=== PATIENT | female | born 1945 | race Caucasian/White ===

== ENCOUNTER 2016-07-21 05:41 | Outpatient (CLI) | payer MEDICARE ==
--- NOTE | 2016-07-20 12:44 | HISTORY AND PHYSICAL ---
DATE OF SERVICE: 07/24/2016 HISTORY OF PRESENT ILLNESS: The patient is a 71-year-old white female referred for screening colonoscopy by Dr. Jean Baptiste. She is deemed to be of higher than average risk as there is a family history for colon cancer index case being her mother diagnosed in her 60s. She also had a grandmother who may have had colon cancer. She actually however lived to be 100. Her mother survived colon cancer but at the age of 75 of tobacco-related illness. The patient last underwent colonoscopy 5 years ago at which time she had a periappendiceal orifice tubular adenoma removed. She had moderate sigmoid diverticular disease and 1 moderate-sized transverse colonic diverticulum. Since that time she reports no blood in her stool and she has had no bowel habit change. She has had a major multilevel back stabilization surgery with andrea placement for severe scoliosis with symptomatic radiculopathy and lower extremity weakness. She had some mild postoperative nerve injury in her left foot but this has been improving as of late. She underwent surgery in 04/2014. She exercises on a regular basis with no anginal symptoms and she denies shortness of breath. PAST MEDICAL HISTORY: Also significant for hyperlipidemia with no known history of coronary artery disease. She underwent echocardiography in 2014 and she had some postoperative shortness of breath. She had a helical CT scan that revealed no evidence for pulmonary embolism. Her echo revealed normal systolic function with an estimated ejection fraction of 60% and normal pulmonary artery pressure estimated at 25 mmHg. PAST SURGICAL HISTORY: Also significant for total abdominal hysterectomy many years ago, rotator cuff repair and Caesarean section. SOCIAL HISTORY: She is retired. Previous [facility]. 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 She exercises on a regular basis. MEDICATIONS ON ADMISSION: L-thyroxine 25 mcg daily, baclofen 10 mg typically 1 tablet daily, estradiol 0.5 mg daily, lovastatin 40 mg daily, Co-Q10 200 mg daily, gabapentin 300 mg at bedtime, magnesium 400 mg daily, vitamin D 5000 units daily. PHYSICAL EXAMINATION: GENERAL APPEARANCE: Reveals a white female who appears younger than her stated age. VITAL SIGNS: Blood pressure was 134/60. Heart rate is 72 and regular. HEENT: Oral cavity reveals Mallampati Class 2. Oropharyngeal configuration: Posterior pharynx reveals no evidence for erythema. NECK: Reveals no JVD, adenopathy or bruits. CHEST: Clear. CARDIOVASCULAR: Reveals a regular rate and rhythm without murmur, S3 or S4. ABDOMEN: Soft and supple without mass, organomegaly or tenderness. BACK: Reveals a well-healed midline surgical scarring. EXTREMITIES: Reveal no cyanosis, clubbing or edema. ASSESSMENT: The patient was set up for screening colonoscopy on 07/24/2016. Instructions for the Suprep Kit were given and questions were answered. I thank you for the referral of this pleasant lady. Sincerely, Job ID: [id number] DocumentID: [id number] Dictated Date: 07/09/2016 20:52:42 Balancer Scale Date: 07/09/2016 22:05:09 Dictated By: DAYLIN TIM MD MTDD
[~2016-07-21] VITALS: Ht 160 cm; Wt 56.7 kg
[~2016-07-21 05:41] MED LIST: ACDPT PO; BACL10TA PO; ESTR0.5T PO; GABA-486 PO; LOVA40TA2 PO; OMEP20CA12 PO; OMEPRAZOLE PO; OXYC1TAB17 PO; OXYC5TAB71 PO; RANI75TA30 PO; UBID1CAP3 PO
[2016-07-21] MEDS ORDERED: GABA-488 PO (11:40)
[2016-07-21] MEDS ORDERED: LEVO25TA5 PO (11:41)
== END 2016-07-21 11:56 ==
LOC: PREOP 05:41
PROVIDERS: ATTEND Internal Medicine
DX: Z01.818 Encounter for other preprocedural examination (principal); Z12.11 Encounter for screening for malignant neoplasm of colon; Z80.0 Family history of malignant neoplasm of digestive organs

== ENCOUNTER 2016-07-24 06:59 | Day surgery (SDC) | payer MEDICARE ==
[~2016-07-24] VITALS: Ht 160 cm; Wt 56.7 kg
[~2016-07-24 06:59] MED LIST changes: +GABA-488 PO; +LEVO25TA5 PO
[2016-07-24] MEDS ORDERED: 1/2 NS IV SOLUTION 1,000 ML IV STA (07:10)
[2016-07-24] MEDS ORDERED: NALOXONE 0.4 MG/ML 1 ML (NARCAN) VIAL IVP PRN (07:15)
[2016-07-24] MEDS ORDERED: LIDOCAINE JELLY 2% (XYLOCAINE) 5 ML TUBE MM PRN (07:15)
[2016-07-24] MEDS ORDERED: FLUMAZENIL (ROMAZICON) 0.1 MG/ML 5 ML VIAL INJ PRN (07:15)
[2016-07-24] MEDS ORDERED: 1/2 NS IV SOLUTION 1,000 ML IV ONE (07:19)
--- NOTE | 2016-07-24 07:27 | Pre-Op Note & Conscious Sedat ---
Pre-Operative Progress Note H&P Reviewed The H&P was reviewed, patient examined and no changes noted. Date H&P Reviewed: July 24, 2016 Time H&P Reviewed: 07:26 Conscious Sedation Pre-Proced ASA Class: 2 Airway Mallampati Classification: ([place] appropriate class) I. II. III, IV Lungs Heart ASA score ASA 1: a normal healthy patient ASA 2: a patient with a mild systemic disease (mid diabetes, controlled hypertension, obesity ASA 3: a patient with a severe systemic disease that limits activity (angina , COPD, prior Myocardial infarction) ASA 4: a patient with an incapacitating disease that is a constant threat to life (CHF, renal failure) ASA 5: a moribund patient not expected to survive 24 hrs. (ruptured aneurysm) ASA 6: a declared brain patient whose organs are being harvested. For emergent operations, add the letter E after the classification Grade 2 Sedation Plan: Analgesia, Amnesia, Plan communicated to team members, Discussed options with patient/fam, Discussed risks with patient/fam Note The patient is an appropriate candidate to undergo the planned procedure, sedation, and anesthesia. The patient immediately re-assessed prior to indication. DAYLIN TIM MD July 24, 2016 07:27
[2016-07-24 07:43] VITALS: BP 109/68
[2016-07-24] MEDS ORDERED: fentaNYL INJECTION 100 MCG/2 ML AMP ONE ×2 (07:51→08:12)
[2016-07-24] MEDS ORDERED: LIDOCAINE JELLY 2% (XYLOCAINE) 5 ML TUBE ONE (07:51)
[2016-07-24] MEDS ORDERED: MIDAZOLAM 2 MG/2 ML (VERSED) VIAL ONE ×4 (07:51→08:21)
[2016-07-24] MEDS: fentaNYL INJECTION 100 MCG/2 ML AMP IVP PRN ×3 (07:55→08:16)
[2016-07-24] MEDS: MIDAZOLAM 2 MG/2 ML (VERSED) VIAL IVP PRN ×4 (08:00→08:25)
[2016-07-24 08:45] VITALS: BP 113/63
[2016-07-24 08:50] VITALS: BP 113/63
[2016-07-24 09:15] VITALS: BP 105/66
[2016-07-24 10:10] VITALS: BP 105/66
--- NOTE | 2016-07-25 03:33 | OPERATIVE REPORT ---
DATE OF SERVICE: COLONOSCOPY INDICATIONS: Colonoscopy is performed for screening purposes. The patient is deemed to be higher than average risk as her mother was diagnosed with colon cancer in her 60s and has an uncle with colon cancer as well. The patient was placed in the left lateral decubitus position. Prior to undergoing colonoscopy, digital rectal evaluation was performed. Anal sphincterotome was actually increased over baseline, no other abnormalities; no additional inspection of the anal canal or distal rectal vault. The colonoscope was then inserted into the rectum and under direct visualization advanced to the cecum. The cecum was identified by identification of the ileocecal valve, cecal strap and the appendiceal orifice. Photographic documentation was obtained. Careful inspection was made as the colonoscope was withdrawn. FINDINGS: There was no evidence for internal or external hemorrhoids. The rectum was unremarkable. A moderate number of small to medium size sigmoid diverticulum were present with mild haustral hypertrophy. There was no evidence to suggest diverticulitis. No other sigmoid colonic abnormalities were appreciated. Several small diverticula were noted in the descending colon, which is otherwise unremarkable. The transverse colon, ascending colon and cecum were normal. ASSESSMENT: 1. No evidence for neoplasia was noted on today's evaluation, would abdicate consideration for repeat screening colonoscopy in 5 years considering this patient's family history. 2. Moderate diverticular disease predominantly noted in the sigmoid and to a much lesser extent in the descending colon was present without evidence for diverticulitis. I thank you for the referral of this pleasant lady. Sincerely, Job ID: [id number] DocumentID: [id number] Dictated Date: 07/24/2016 11:54:10 Baggagemaster Date: 07/25/2016 03:32:46 Dictated By: DAYLIN TIM MD [facility] CENTERKaren
== END 2016-07-24 10:10 | disposition home or self-care (01) ==
LOC: ENDO 06:59
PROVIDERS: ATTEND Internal Medicine
DX: Z12.11 Encounter for screening for malignant neoplasm of colon (principal); Z80.0 Family history of malignant neoplasm of digestive organs; K57.30 Diverticulosis of large intestine without perforation or abscess without bleeding; E78.5 Hyperlipidemia, unspecified; I25.10 Atherosclerotic heart disease of native coronary artery without angina pectoris; Z79.899 Other long term (current) drug therapy

== ENCOUNTER → 2016-09-15 | Outpatient (CLI) | payer MEDICARE ==
--- NOTE | 2016-09-15 12:00 | Diagnostic Imaging Report ---
PROCEDURE: MRI lumbar spine. TECHNIQUE: Multiplanar, multisequence MRI of the lumbar spine was performed without contrast. INDICATION: M48.06 COMPARISON: 08/18/2013. FINDINGS: Since 2013, there has been posterior spine fusion with hardware from T10 to the sacrum with screws across the SI joints. This is resulting in significant beam hardening artifacts. There is also a disc spacer seen at the L4/5 level. There is significant improvement in the scoliosis, now mild convex to the left centered around the upper lumbar spine compared with severe scoliotic curvature on 08/18/2013 exam. Evaluation of the bone marrow is limited secondary to significant artifacts from the susceptibility artifact of the metallic hardware. Also evaluation of the spinal canal is somewhat limited although based on the visualized portions at the better seen levels, there is no significant spinal canal stenosis suggested at any level. There is no significant disc herniation. There is a suggestion of posterior ligamentous hypertrophy noted at some levels. IMPRESSION: There is significant improvement in the alignment of the lumbar spine with remaining mild scoliosis convex to the left centered in the upper lumbar spine. The study is limited with significant artifacts. No definite or significant disc herniation or spinal canal stenosis is seen. Dictated by: Dictated on workstation # [id number]
--- NOTE | 2016-09-15 16:38 | Diagnostic Imaging Report ---
PROCEDURE: MR imaging cervical spine without contrast. TECHNIQUE: Multiplanar, multisequence MR imaging of the cervical spine was performed without contrast. INDICATION: Neck pain. FINDINGS: There is straightening of the cervical spine lordotic curvature. There is minimal anterior translation of C3 over C4 and minimal posterior translation of C4 over C5. The vertebral body heights are preserved. There is significant disc height loss at C4/C5 and C5/C6 levels. Disc desiccation is seen at all levels. Prominent bone marrow edema is seen around C4/C5 and C5/C6 discs. The foramen magnum and upper cervical canal are widely patent. The spinal cord has normal signal. C2/C3: There is no disc herniation. No spinal canal or foraminal stenosis. C3/C4: There is a mild disc spur complex seen in the central and left paracentral region with no significant spinal canal stenosis. There is uncovertebral and facet joint hypertrophy with bilateral mild foraminal stenosis. C4/C5: There is a spur disc complex associated with mild spinal canal stenosis reducing the AP dimension of the canal to 9 mm. No cord compression. The foramina demonstrate severe stenosis on the right and mild stenosis on the left. C5/C6: There is a spur disc complex asymmetric to the left and posterior ligamentous hypertrophy. This is associated with moderate spinal canal stenosis reducing the AP dimension of the canal to 6.9 mm with minimal compression of the left side of the spinal cord. No cord signal abnormality, however, is seen. This is in part related to a prominent posteriorly projecting spur from the left uncovertebral joint level and adjacent disc spur complex. The neural foramina demonstrate severe stenosis on the left and moderate to severe stenosis on the right. C6/C7: There is a spur disc complex associated with mild to moderate spinal canal stenosis reducing the AP dimension of the canal to 8.2 mm with no cord compression. The neural foramina demonstrate moderate stenosis on the left and mild stenosis on the right side. Bilateral perineural cysts in the foramina are seen up to 9 mm on the right and 7 mm on the left. C7/T1: There is a minimal spur disc complex with no spinal canal stenosis. There is mild foraminal narrowing only on the right side. Incidental note of mucosal thickening in the sphenoidal sinuses is seen. IMPRESSION: Prominent degenerative disc changes in the mid to lower cervical spine. There is moderate spinal canal stenosis at C5/C6 level with minimal cord compression along the left side of the cord at this level. There is also multilevel significant foraminal stenosis as described. Dictated by: Dictated on workstation # [id number]
--- NOTE | 2016-09-15 16:51 | Diagnostic Imaging Report ---
EXAMINATION: Multiplanar, multisequence MRI of the thoracic spine performed without intravenous contrast. INDICATION: History of scoliosis with posterior fixation of the thoracolumbar spine. FINDINGS: There is significant susceptibility artifact related to posterior fusion hardware with transpedicular screws and connecting rods involving T4 level and extending caudally nearly involving each level of the thoracic spine and extending to the lumbar spine below the [id number] of this study. This distorts the signal in the bone marrow and could obscure marrow abnormalities although no definitive bone marrow lesion is identified. There is suggestion of disc desiccation seen at multiple levels. There is no definite disc herniation seen. Although there is distortion of the spinal canal and artifacts seen as well, there is no obvious evidence of spinal canal stenosis at any level. The spinal cord is also affected at multiple levels with artifacts as well with no obvious mass, syrinx or abnormal signal. IMPRESSION: Posterior fusion from T4 extending to the lumbar spine below the level of the [id number] of this exam resulting in artifacts as explained. No definite evidence of abnormal marrow lesion or spinal canal stenosis or cord compression at any level. Dictated by: Dictated on workstation # [id number]
== END ==
LOC: RAD 09:28
PROVIDERS: ATTEND Internal Medicine
DX: M50.321 Other cervical disc degeneration at C4-C5 level (principal); M48.02 Spinal stenosis, cervical region; Z98.1 Arthrodesis status
CPT/HCPCS: 72141; 72146; 72148

== ENCOUNTER → 2016-11-02 | Outpatient (CLI) | payer MEDICARE ==
--- NOTE | 2016-11-02 09:53 | Diagnostic Imaging Report ---
INDICATION: Left foot numbness, back pain. There are no previous CT thoracic and lumbar spine exams available for comparison. FINDINGS: The MRI thoracic and lumbar spine exams performed on 09/15/16 noted extensive postsurgical changes involving the thoracic and lumbar spine. Specifically, there is a fusion from T4 through S1. There are also orthopedic fixation screws extending obliquely through each sacroiliac joint. The previous MRI thoracic and lumbar spine exams fail to show any sign of a significant central stenosis. On this exam, the orthopedic hardware is again evident. There are bilateral pedicle screws in place at every level except T4, T5, T9 and T12. There are single pedicle screws on the left at these levels. The intervertebral cages at the L4-L5 level seen previously are also stable. As on the MRI examinations, the evaluation of the thecal sac is somewhat limited due to the artifact related to the orthopedic hardware. There does not appear to be any significant central high-grade stenosis. There is no fracture or acute bony abnormality identified. There is no sign of a paraspinal mass. There is diverticulosis of the sigmoid colon but there is no sign of acute diverticulitis. The lungs, where visualized are clear. IMPRESSION: 1. The extensive postsurgical changes involving the thoracic and lumbar spine seen previously are again evident. The orthopedic hardware seems to be in good position. 2. There is no fracture or acute bony abnormality identified. 3. There is no high-grade central stenosis. 4. There is no paraspinal mass visualized. 5. There is diverticulosis of sigmoid colon without evidence for acute diverticulitis. Dictated by: Dictated on workstation # [id number]
== END ==
LOC: RAD 07:34
PROVIDERS: ATTEND Orthopaedic Surgery Orthopaedic Surgery of the Spine
DX: M54.5 Low back pain (principal); Z98.1 Arthrodesis status
CPT/HCPCS: 72128; 72131

== ENCOUNTER 2016-12-30 08:16 | Outpatient (CLI) | payer MEDICARE ==
[~2016-12-30] VITALS: Ht 160 cm; Wt 56.7 kg
[2016-12-30] MEDS ORDERED: UBID1CAP3 PO (08:21)
[2016-12-30] MEDS ORDERED: BACL10TA PO (08:21)
[2016-12-30] MEDS ORDERED: LOVA40TA2 PO (08:21)
[2016-12-30] MEDS ORDERED: ESTR0.5T PO (08:21)
== END 2016-12-30 08:30 ==
LOC: PREOP 08:16
PROVIDERS: ATTEND Orthopaedic Surgery Orthopaedic Surgery of the Spine
DX: Z01.818 Encounter for other preprocedural examination (principal); M79.662 Pain in left lower leg

== ENCOUNTER 2017-01-01 06:14 | Day surgery (SDC) | payer MEDICARE ==
[~2017-01-01] VITALS: Ht 160 cm; Wt 56.7 kg
--- OUTSIDE RECORDS SUMMARY | 2017-01-01 06:19 | XMS REPORT | Continuity of Care Document ---
Author Author [facility] Organization [facility] Address Unknown Phone Unavailable Allergies Active Description Code Type Severity Reaction Onset Reported/Identified Relationship to Patient Clinical Status Yes No Known Drug Allergies [id number] Drug Allergy Unknown N/ A 10/16/2011 Medications Problems Date Dx Coded Attending Type Code Diagnosis Diagnosed By 10/16/2011 Ot 211.3 BENIGN NEOPLASM LG BOWEL 10/16/2011 Ot 562.10 DIVERTICULOSIS COLON (W/O MENT OF HEMORR 10/16/2011 Ot V16.0 FAMILY HX-GI MALIGNANCY 10/16/2011 Ot V76.51 SCREEN MAL NEOP-COLON 12/02/2012 JANELLE BIRMINGHAM DO Ot 724.4 LUMBOSACRAL NEURITIS NOS 12/02/2012 JANELLE BIRMINGHAM DO Ot 737.30 IDIOPATHIC SCOLIOSIS 12/02/2012 JANELLE BIRMINGHAM DO Ot V57.1 PHYSICAL THERAPY NEC 02/05/2014 Ot V76.12 02/05/2014 Ot V72.84 02/05/2014 Ot 715.34 02/05/2014 Ot 793.82 02/05/2014 Ot V76.12 02/05/2014 JANELLE BIRMINGHAM DO Ot 722.52 02/05/2014 JANELLE BIRMINGHAM DO Ot 737.30 02/05/2014 JANELLE BIRMINGHAM DO Ot 786.07 02/05/2014 JANELLE BIRMINGHAM DO Ot 786.2 02/05/2014 JANELLE BIRMINGHAM DO Ot 722.10 02/05/2014 JANELLE BIRMINGHAM DO Ot 722.52 02/05/2014 JANELLE BIRMINGHAM DO Ot 737.30 02/05/2014 JANELLE BIRMINGHAM DO Ot V76.12 02/07/2014 JANELLE BIRMINGHAM DO Ot 737.30 03/05/2014 JANELLE BIRMINGHAM DO Ot 737.30 03/12/2014 JANELLE BIRMINGHAM DO Ot 737.30 04/04/2014 Ot V76.12 04/04/2014 Ot V72.84 04/04/2014 Ot 715.34 04/04/2014 Ot 793.82 04/04/2014 Ot V76.12 04/04/2014 JANELLE BIRMINGHAM DO Ot 722.52 04/04/2014 JANELLE BIRMINGHAM DO Ot 737.30 04/04/2014 JANELLE BIRMINGHAM DO Ot 786.07 04/04/2014 JANELLE BIRMINGHAM DO Ot 786.2 04/04/2014 JANELLE BIRMINGHAM DO Ot 722.10 04/04/2014 JANELLE BIRMINGHAM DO Ot 722.52 04/04/2014 JANELLE BIRMINGHAM DO Ot 737.30 04/04/2014 JANELLE BIRMINGHAM DO Ot V76.12 04/04/2014 JANELLE BIRMINGHAM DO Ot 737.30 04/30/2014 DOM HINTON, CRISTAL Preston Ot 733.90 04/30/2014 DOM HINTON, CRISTAL Preston Ot 733.90 05/16/2014 DOM HINTON, CRISTAL Preston Ot 786.05 05/16/2014 CRISTAL FERNANDES MD Ot V72.81 05/17/2014 CRISTAL FERNANDES MD Ot 786.05 05/17/2014 CRISTAL FERNANDES MD Ot V72.81 05/26/2014 Ot 272.4 HYPERLIPIDEMIA NEC/NOS 05/26/2014 Ot 356.9 IDIO PERIPH NEURPTHY NOS 05/26/2014 Ot 553.3 DIAPHRAGMATIC HERNIA 05/26/2014 Ot 724.5 BACKACHE NOS 05/26/2014 Ot 785.2 CARDIAC MURMURS NEC 05/26/2014 Ot 786.09 RESPIRATORY ABNORM NEC 05/26/2014 Ot 786.50 CHEST PAIN NOS 06/11/2014 Ot V76.12 06/11/2014 Ot V72.84 06/11/2014 Ot 715.34 06/11/2014 Ot 793.82 06/11/2014 Ot V76.12 06/11/2014 JANELLE BIRMINGHAM DO Ot 722.52 06/11/2014 JANELLE BIRMINGHAM DO Ot 737.30 06/11/2014 JANELLE BIRMINGHAM DO Ot 786.07 06/11/2014 JANELLE BIRMINGHAM DO Ot 786.2 06/11/2014 JANELLE BIRMINGHAM DO Ot 722.10 06/11/2014 JANELLE BIRMINGHAM DO Ot 722.52 06/11/2014 JANELLE BIRMINGHAM DO Ot 737.30 06/11/2014 JANELLE BIRMINGHAM DO Ot V76.12 06/11/2014 JANELLE BIRMINGHAM DO Ot 737.30 06/11/2014 CRISTAL FERNANDES MD Ot 733.90 06/11/2014 CRISTAL FERNANDES MD Ot 786.05 06/11/2014 CRISTAL FERNANDES MD Ot V72.81 06/11/2014 CRISTAL FERNANDES MD Ot 733.90 07/13/2014 NOEL HURD MD Ot 722.52 LUMB/LUMBOSAC DISC DEGEN 07/13/2014 NOEL HURD MD Ot 737.30 IDIOPATHIC SCOLIOSIS 07/13/2014 NOEL HURD MD, Ot V58.69 [facility] MED,LT,CURRENT USE 07/19/2014 NOEL HURD MD Ot 722.52 07/19/2014 NOEL HURD MD, Ot 737.30 07/19/2014 NOEL HURD MD Ot V58.69 08/10/2014 NOEL HURD MD Ot 722.52 08/10/2014 NOEL HURD MD Ot 737.30 08/10/2014 NOEL HURD MD, Ot V58.69 08/10/2014 AMELIA HINTON, VINCE Z Ot 729.81 09/05/2014 AMELIA HINTON, VINCE Z Ot 729.81 10/26/2014 JANELLE BIRMINGHAM DO Ot 457.1 10/26/2014 JANELLE BIRMINGHAM DO Ot V57.21 11/23/2014 JANELLE BIRMINGHAM DO Ot 457.1 OTHER LYMPHEDEMA 11/23/2014 JANELLE BIRMINGHAM DO Ot V57.21 ENCOUNTER FOR OCCUPATIONAL THERAPY 12/11/2014 JANELLE BIRMINGHAM DO Ot V76.12 12/26/2015 Ot V76.12 OT SCREEN MAMMO-MALIGN NEOPLASM OF [place] 12/26/2015 Ot V72.84 EXAM PRE-OPERATIVE NOS 12/26/2015 Ot 715.34 LOC OSTEOARTH NOS-HAND 12/26/2015 Ot 793.82 INCONCLUSIVE MAMMOGRAM 12/26/2015 Ot V76.12 OTH SCREEN MAMMO-MALIGN NEOPLASM OF [place] 12/26/2015 JANELLE BIRMINGHAM DO Ot 722.52 LUMB/LUMBOSAC DISC DEGEN 12/26/2015 JANELLE BIRMINGHAM DO Ot 737.30 IDIOPATHIC SCOLIOSIS 12/26/2015 JANELLE BIRMINGHAM DO Ot 786.07 WHEEZING 12/26/2015 JANELLE BIRMINGHAM DO Ot 786.2 COUGH 12/26/2015 JANELLE BIRMINGHAM DO Ot 722.10 LUMBAR DISC DISPLACEMENT 12/26/2015 JANELLE BIRMINGHAM DO Ot 722.52 LUMB/LUMBOSAC DISC DEGEN 12/26/2015 JANELLE BIRMINGHAM DO Ot 737.30 IDIOPATHIC SCOLIOSIS 12/26/2015 JANELLE BIRMINGHAM DO Ot V76.12 OTH SCREEN MAMMO-MALIGN NEOPLASM OF [place] 12/26/2015 JANELLE BIRMINGHAM DO Ot 737.30 IDIOPATHIC SCOLIOSIS 12/26/2015 DOM HINTON, CRISTAL Preston Ot 733.90 BONE CARTILAGE DIS NOS 12/26/2015 CRISTAL FERNANDES MD Ot 786.05 SHORTNESS OF BREATH 12/26/2015 CRISTAL FERNANDES MD Ot V72.81 OLYN-LRT-RJESYDVIE CARDIOVASCULAR 12/26/2015 CRISTAL FERNANDES MD Ot 733.90 BONE CARTILAGE DIS NOS 12/26/2015 NOEL HURD MD Ot 722.52 LUMB/LUMBOSAC DISC DEGEN 12/26/2015 NOEL HURD MD Ot 737.30 IDIOPATHIC SCOLIOSIS 12/26/2015 NOEL HURD MD Ot V58.69 OT MED,LT,CURRENT USE 12/26/2015 AMELIA HINTON, VINCE Z Ot 729.81 SWELLING OF LIMB 12/26/2015 JANELLE BIRMINGHAM DO Ot V76.12 OTH SCREEN MAMMO-MALIGN NEOPLASM OF [place] 02/04/2016 JANELLE BIRMINGHAM DO Ot Z12.31 ENCNTR SCREEN MAMMOGRAM FOR MALIGNANT NE 02/05/2016 JANELLE BIRMINGHAM DO Ot Z12.31 ENCNTR SCREEN MAMMOGRAM FOR MALIGNANT NE 02/05/2016 JANELLE BIRMINGHAM DO Ot Z12.31 ENCNTR SCREEN MAMMOGRAM FOR MALIGNANT NE 02/10/2016 JANELLE BIRMINGHAM DO Ot Z12.31 ENCNTR SCREEN MAMMOGRAM FOR MALIGNANT NE 02/25/2016 JANELLE BIRMINGHAM DO Ot Z12.31 ENCNTR SCREEN MAMMOGRAM FOR MALIGNANT NE 07/22/2016 DAYLIN TIM MD Ot Z01.818 ENCOUNTER FOR OTHER PREPROCEDURAL EXAMIN 07/22/2016 DAYLIN TIM MD Ot Z12.11 ENCOUNTER FOR SCREENING FOR MALIGNANT NE 07/22/2016 DAYLIN TIM MD Ot Z80.0 FAMILY HISTORY OF MALIGNANT NEOPLASM OF 07/24/2016 DAYLIN TIM MD Ot E78.5 HYPERLIPIDEMIA, UNSPECIFIED 07/24/2016 DAYLIN TIM MD Ot I25.10 ATHSCL HEART DISEASE OF [place] CORONARY 07/24/2016 DAYLIN TIM MD Ot K57.30 DVRTCLOS OF LG INT W/O PERFORATION OR AB 07/24/2016 DAYLIN TIM MD Ot Z12.11 ENCOUNTER FOR SCREENING FOR MALIGNANT NE 07/24/2016 DAYLIN TIM MD Ot Z79.899 OTHER [facility] (CURRENT) DRUG THERAPY 07/24/2016 DAYLIN TIM MD Ot Z80.0 FAMILY HISTORY OF MALIGNANT NEOPLASM OF 07/27/2016 DAYLIN TIM MD Ot Z01.818 ENCOUNTER FOR OTHER PREPROCEDURAL EXAMIN 07/27/2016 DAYLIN TIM MD Ot Z12.11 ENCOUNTER FOR SCREENING FOR MALIGNANT NE 07/27/2016 DAYLIN TIM MD Ot Z80.0 FAMILY HISTORY OF MALIGNANT NEOPLASM OF 07/29/2016 DAYLIN TIM MD Ot E78.5 HYPERLIPIDEMIA, UNSPECIFIED 07/29/2016 DAYLIN TIM MD Ot I25.10 ATHSCL HEART DISEASE OF [place] CORONARY 07/29/2016 DAYLIN TIM MD Ot K57.30 DVRTCLOS OF LG INT W/O PERFORATION OR AB 07/29/2016 DAYLIN TIM MD Ot Z12.11 ENCOUNTER FOR SCREENING FOR MALIGNANT NE 07/29/2016 DAYLIN TIM MD Ot Z79.899 OTHER VICE [employer] [employer] (CURRENT) DRUG THERAPY 07/29/2016 DAYLIN TIM MD Ot Z80.0 FAMILY HISTORY OF MALIGNANT NEOPLASM OF 09/16/2016 JANELLE BIRMINGHAM DO Ot M48.02 SPINAL STENOSIS, CERVICAL REGION 09/16/2016 JANELLE BIRMINGHAM DO Ot 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 09/16/2016 JANELLE BIRMINGHAM DO Ot Z98.1 ARTHRODESIS STATUS 09/16/2016 JANELLE BIRMINGHAM DO Ot M48.02 SPINAL STENOSIS, CERVICAL REGION 09/16/2016 JANELLE BIRMINGHAM DO Ot 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 09/16/2016 JANELLE BIRMINGHAM DO Ot Z98.1 ARTHRODESIS STATUS 09/16/2016 JANELLE BIRMINGHAM DO Ot M48.02 SPINAL STENOSIS, CERVICAL REGION 09/16/2016 JANELLE BIRMINGHAM DO Ot 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 09/16/2016 BIRMINGHAMJANELLE KC DO Ot Z98.1 ARTHRODESIS STATUS 09/16/2016 JANELLE BIRMINGHAM DO Ot M48.02 SPINAL STENOSIS, CERVICAL REGION 09/16/2016 BIRMINGHAMJANELLE KC DO Ot 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 09/16/2016 JANELLE BIRMINGHAM DO Ot Z98.1 ARTHRODESIS STATUS 09/16/2016 JANELLE BIRMNIGHAM DO Ot M48.02 SPINAL STENOSIS, CERVICAL REGION 09/16/2016 JANELLE BIRMINGHAM DO Ot 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 09/16/2016 JANELLE BIRMINGHAM DO Ot Z98.1 ARTHRODESIS STATUS 09/16/2016 JANELLE BIRMINGHAM DO Ot M48.02 SPINAL STENOSIS, CERVICAL REGION 09/16/2016 JANELLE BIRMINGHAM DO Ot 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 09/16/2016 JANELLE BIRMINGHAM DO Ot Z98.1 ARTHRODESIS STATUS 09/16/2016 JANELLE BIRMINGHAM DO Ot M48.02 SPINAL STENOSIS, CERVICAL REGION 09/16/2016 JANELLE BIRMINGHAM DO Ot 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 09/16/2016 JANELLE BIRMINGHAM DO Ot Z98.1 ARTHRODESIS STATUS 09/21/2016 JANELLE BIRMINGHAM DO Ot M48.02 SPINAL STENOSIS, CERVICAL REGION 09/21/2016 JANELLE BIRMINGHAM DO Ot 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 09/21/2016 JANELLE BIRMINGHAM DO Ot Z98.1 ARTHRODESIS STATUS 10/08/2016 JANELLE BIRMINGHAM DO Ot M48.02 SPINAL STENOSIS, CERVICAL REGION 10/08/2016 JANELLE BIRMINGHAM DO Ot 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 Visit Date/Time Discharge Status Pt. Type Provider Facility Loc./Unit Complaint [id number] 11/02/2016 07:34:00 2016 23:59:59 CLS Outpatient ISHMAEL GUAN MD [facility] RAD BACK PAIN M54.5 [id number] 09/29/2016 14:24:00 2016 23:59:59 CLS Preadmit ISHMAEL GUAN MD [facility] RAD BACK PAIN [id number] 09/15/2016 16:15:00 2016 23:59:59 CLS Preadmit JANELLE BIRMINGHAM DO [facility] RAD M48.06 [id number] 09/15/2016 09:28:00 2016 23:59:59 CLS Outpatient JANELLE BIRMINGHAM DO [facility] RAD M48.06 [id number] 07/24/2016 06:59:00 2016 10:10:00 DIS Outpatient DAYLIN TIM MD [facility] ENDO SCREENING, FAMILY HISTORY OF COLON CANCER [id number] 07/21/2016 05:41:00 2016 11:56:00 DIS Outpatient DAYLIN TIM MD [facility] PREOP SCREENINNG, FAMILY HISTORY OF COLON CANCER [id number] 02/04/2016 09:19:00 2015 23:59:59 CLS Outpatient JANELLE BIRMINGHAM DO [facility] RAD SCREENING [id number] 12/26/2015 11:01:00 2015 23:59:59 CLS Outpatient JANELLE BIRMINGHAM DO [facility] RAD SCREENING [id number] 10/31/2014 16:01:00 2014 14:23:00 DIS Outpatient JANELLE BIRMINGHAM DO [facility] REHAB LYMPHEDEMA MASSAGE [id number] 11/20/2014 10:59:00 2014 23:59:59 CLS Outpatient JANELLE BIRMINGHAM DO [facility] RAD SCREENING [id number] 07/13/2014 07:35:00 2014 08:28:00 DIS Outpatient NOEL HURD MD [facility] CARD DDD [id number] 07/11/2014 15:20:00 2014 23:59:59 CLS Outpatient AMELIA HINTON, VINCE Roach [facility] RAD LEFT LOWER EXTREMITY SWELLING SCREENING FOR DVT [id number] 06/11/2014 14:11:00 2014 23:59:59 CLS Outpatient NOEL HURD MD [facility] CARD DDD LUMBAR [id number] 04/10/2014 13:43:00 2014 23:59:59 CLS Outpatient CRISTAL FERNANDES MD [facility] RAD OSTEOPENIA [id number] 04/05/2014 09:25:00 2014 23:59:59 CLS Outpatient CRISTAL FERNANDES MD [facility] RAD OSTEOPENIA [id number] 04/04/2014 07:53:00 2014 23:59:59 CLS Outpatient CRISTAL FERNANDES MD [facility] CARD PREOP OP CLEARANCE [id number] 02/05/2014 13:21:00 2013 23:59:59 CLS Outpatient JANELLE BIRMINGHAM DO [facility] RAD SCOLIOSIS [id number] 08/18/2013 08:29:00 2013 23:59:59 CLS Outpatient JANELLE BIRMINGHAM DO [facility] RAD ROTO SCOLEOSIS W/ RADICULOPATHY [id number] 08/10/2013 09:46:00 2013 23:59:59 CLS Outpatient JANELLE BIRMINGHAM DO [facility] RAD ROUTINE [id number] 02/23/2013 11:50:00 2012 23:59:59 CLS Outpatient JANELLE BIRMINGHAM DO [facility] RAD COUGH,WHEEZING [id number] 12/02/2012 11:01:00 2012 14:53:00 DIS Outpatient JANELLE BIRMINGHAM DO [facility] REHAB SCOLIOSIS WITH L RADICULOPATHY [id number] 09/05/2012 13:32:00 2012 23:59:59 CLS Outpatient JANELLE BIRMINGHAM DO [facility] RAD LUMBAGO [id number] 01/01/2017 07:30:00 PEN Preadmit ISHMAEL GUAN MD [facility] SDC PAINFUL HARDWARE [id number] 05/25/2014 14:40:00 Document Registration [id number] 04/22/2012 13:15:00 Document Registration [id number] 02/01/2012 13:55:00 Document Registration [id number] 10/16/2011 07:04:00 Document Registration [id number] 10/15/2011 08:08:00 Document Registration [id number] 03/02/2011 08:46:00 Document Registration
--- OUTSIDE RECORDS SUMMARY | 2017-01-01 06:19 | XMS REPORT | Clinical Summary ---
Author Author [facility] Organization [facility] Address Unknown Phone Unavailable Care Team Providers Care Drafter Name Role Phone PCP Unavailable Source Comments Some departments are not documenting in the electronic medical record. If you do not see the information that you expected, contact Release of Information in the Health Information Management department at [phone] for further assistance in locating additional records.[facility] Allergies Not on File Current Medications Not on file Active Problems Not on file Social History Tobacco Use Types Packs/Day Years Used Date Never Assessed Sex Assigned at Date Recorded Not on file Last Filed Vital Signs Not on file Plan of Treatment Health Maintenance Due Date Last Done Comments HEPATITIS C SCREENING 1945 PHYSICAL (COMPREHENSIVE) 1953 EXAM PERTUSSIS VACCINE 1957 TETANUS VACCINE 1963 BREAST CANCER SCREENING 1986 COLORECTAL CANCER 1996 SCREENING SHINGLES VACCINE 2006 OSTEOPOROSIS SCREENING 2011 PREVNAR/PNEUMOVAX (#1) 2011 INFLUENZA VACCINE 12/20/2016 Results Not on filefrom Last 3 Months
[2017-01-01] MEDS ORDERED: DEXMEDETOMIDINE 200 MCG/2 ML (PRECEDEX) VIAL IV ONE (06:29)
[2017-01-01 06:35] VITALS: BP 126/73
[2017-01-01] MEDS ORDERED: LIDOCAINE PF 2% 5 ML (XYLOCAINE) VIAL ONE (06:35)
[2017-01-01] MEDS ORDERED: proPOfol 200 MG/20 ML (DIPRIVAN) VIAL IV ONE (06:35)
[2017-01-01] MEDS ORDERED: LIDOCAINE JELLY 2% (XYLOCAINE) 5 ML TUBE ONE (06:35)
[2017-01-01] MEDS ORDERED: MIDAZOLAM 2 MG/2 ML (VERSED) VIAL ONE (06:36)
[2017-01-01] MEDS ORDERED: fentaNYL INJECTION 100 MCG/2 ML AMP ONE (06:36)
[2017-01-01] MEDS ORDERED: NS (IVPB) 100 ML ONE (06:39)
[2017-01-01] MEDS ORDERED: SUCCINYLCHOLINE INJ 100 MG/5 ML SYR ONE (06:40)
[2017-01-01] MEDS ORDERED: LACTATED RINGERS 1,000 ML IV PRN (06:40)
[2017-01-01] MEDS ORDERED: ONDANSETRON 4 MG/2 ML (SDV) Z0FRAN ONE (06:40)
[2017-01-01] MEDS ORDERED: ROCURONIUM 50 MG/5 ML (ZEMURON) VIAL IV ONE (06:47)
[2017-01-01] MEDS ORDERED: ceFAZolin 2 GM/50 ML NS 50 ML ONE (06:50)
[2017-01-01] MEDS ORDERED: GENTAMICIN 40 MG/ML 2 ML INJ SDV ONE (06:54)
[2017-01-01] MEDS ORDERED: BUP/EPI 0.5% 1:200,000 (MARCAINE) 10ML VIAL IJ ONE (06:54)
[2017-01-01] MEDS ORDERED: HYDR-757 PO (07:44)
[2017-01-01] MEDS ORDERED: ceFAZolin 2 GM/NS 50 ML IV ONE (07:45)
--- NOTE | 2017-01-01 08:16 | Progress Note-Post Operative ---
Post-Operative Progess Note Surgeon (s)/Dowel Pin Worker (s) Surgeon ISHMAEL GUAN MD Dowel Pin Worker: JEROME Ashby Pre-Operative Diagnosis HARDWARE PAIN Post-Operative Diagnosis Same Procedure & Operative Findings Date of Procedure 01/01/17 Procedure Performed/Findings Removal Left L4 screw Anesthesia Type GETA Estimated Blood Loss Estimated blood loss (mL): min Specimens/Packing Specimens Removed screw ISHMAEL GUAN MD Jan 01, 2017 8:16 am
[2017-01-01] MEDS ORDERED: NEOSTIGMINE (BLOXIVERZ ) 1 MG/1ML 10 ML VIAL ONE (08:23)
[2017-01-01] MEDS ORDERED: GLYCOPYRROLATE 0.2 MG/ML (ROBINUL) 2 ML VIAL ONE (08:23)
[2017-01-01] MEDS ORDERED: morphine INJ 10 MG/ML 1ML (SYR OR VIAL) IVP PRN (09:30)
[2017-01-01] MEDS ORDERED: ONDANSETRON 4 MG/2 ML (SDV) Z0FRAN IVP PRN (09:30)
[2017-01-01 10:10] VITALS: BP 78/45
[2017-01-01 10:40] VITALS: BP 84/47
[2017-01-01] MEDS ORDERED: HYDROcodone/APAP 5 MG/325 MG (LORTAB) TAB ONE (11:05)
[2017-01-01 11:10] VITALS: BP 89/54
[2017-01-01] MEDS ORDERED: HYDROcodone/APAP 5 MG/325 MG (LORTAB) TAB PO PRN (11:30)
[2017-01-01 11:50] VITALS: BP 89/54
--- NOTE | 2017-01-01 14:09 | Diagnostic Imaging Report ---
EXAM: Intraoperative views of the lumbar spine. INDICATION: Removal of left L4 transpedicular screws performed by Dr. Pascal. FINDINGS / IMPRESSION: The provided images demonstrate the removal of left L4 transpedicular screw. Dictated by: Dictated on workstation # [id number]
--- NOTE | 2017-01-03 12:26 | OPERATIVE REPORT ---
DATE OF SERVICE: 01/01/2017 PREOPERATIVE DIAGNOSIS: Painful hardware. POSTOPERATIVE DIAGNOSIS: Painful hardware. PROCEDURE PERFORMED: Removal of posterior nonsegmental hardware lumbar spine. DATE AND TIME OF SURGERY: Please see anesthesia record. SURGEON: Ishmael Pascal MD OPERATIONS ADMINISTRATIVE ASSISTANT: JAM Ashby ROLE OF TECHNOLOGY PROFESSIONAL: Aid in retraction of the procedure, aid in hardware removal and wound closure. ANESTHESIA: General endotracheal. ESTIMATED BLOOD LOSS: Minimal. INTRAVENOUS FLUIDS: Please see anesthesia record. ANTIBIOTICS: Ancef. COMPLICATIONS: None. INDICATIONS FOR PROCEDURE: The patient is a 71-year-old female with previous scoliotic fusion in [place]. She has a screw that is lateral and painful, desires removal. Risks, benefits, alternatives discussed. She would like to proceed with the operation. DESCRIPTION OF PROCEDURE: The patient was taken to the preoperative holding area and brought back to the operative suite after adequate induction of general anesthesia, preoperative antibiotics placement of spinal monitoring, ____ prone on Castillo table, careful padding to all extremities, sterilely prepped and draped ____. Attention was directed directly overlying the L4 screw which was localized with imaging and a small Donal incision was made. Dissection carried down to the level of the hardware. The L4 screw was visualized, titanium cutting bur was used cut the andrea above and below the andrea. The screw was removed without difficulty. Bone wax and FloSeal were used to aid in hemostasis. Once hemostasis was obtained, the wound was closed in layers. The patient was transferred to recovery room in stable condition having tolerated the procedure well. Job ID: [id number] DocumentID: [id number] Dictated Date: 01/01/2017 08:26:40 Manager Product Management Date: 01/01/2017 09:13:18 Dictated By: ISHMAEL PASCAL MD
== END 2017-01-01 12:09 | disposition home or self-care (01) ==
LOC: SDC 06:14
PROVIDERS: ATTEND Orthopaedic Surgery Orthopaedic Surgery of the Spine
DX: T84.84XA Pain due to internal orthopedic prosthetic devices, implants and grafts, initial encounter (principal); M41.9 Scoliosis, unspecified; M19.91 Primary osteoarthritis, unspecified site; G62.9 Polyneuropathy, unspecified; Z79.899 Other long term (current) drug therapy
CPT/HCPCS: 87081

== ENCOUNTER → 2017-08-09 | Outpatient (CLI) | payer MEDICARE ==
[~2017-08-09] MED LIST changes: +HYDR-757 PO
--- NOTE | 2017-08-09 14:46 | Diagnostic Imaging Report ---
Indication: Pain in the lateral left breast. Sonographic interrogation of the lateral left breast was performed. In addition, all 4 quadrants and retroareolar regions were evaluated. No sonographic abnormality is seen. No solid or cystic mass is detected. Impression: BI-RADS category 1. No sonographic abnormalities identified. Continued clinical and self breast exam is recommended to confirm stability. ACR BI-RADS Category 1: Negative. Result letter will be mailed to the patient. Note: At least 10% of breast cancer is not imaged by mammography. Dictated by: Dictated on workstation # [id number]
--- NOTE | 2017-08-09 16:03 | Diagnostic Imaging Report ---
INDICATION: Pain in the lateral left breast. COMPARISON: 02/04/2016. TECHNIQUE: 2D and 3D unilateral left diagnostic mammography was performed. The current study was also evaluated with a Computer Aided Detection (CAD) system. FINDINGS: The left breast is heterogeneously dense, limiting the sensitivity of mammography. No discrete mass is identified. No suspicious calcifications are identified. The left axilla is unremarkable. IMPRESSION: No mammographic features suspicious for malignancy are identified. Even so, directed sonographic interrogation of the area of pain in the lateral left breast is recommended. ACR BI-RADS Category 0: Incomplete. (Needs additional imaging evaluation). Result letter will be mailed to the patient. Note: At least 10% of breast cancer is not imaged by mammography. Dictated by: Dictated on workstation # [id number]
== END ==
LOC: RAD 13:26
PROVIDERS: ATTEND Nurse Practitioner
DX: N64.4 Mastodynia (principal)
CPT/HCPCS: 76642

== ENCOUNTER → 2017-08-24 | Outpatient (CLI) | payer MEDICARE ==
--- NOTE | 2017-08-24 12:37 | Diagnostic Imaging Report ---
Indication: Right upper quadrant pain; Gallbladder sonography performed in the routine fashion. The liver shows normal echogenicity with no focal lesions. The gallbladder shows no stones or wall thickening. There is however dilatation of the common bile duct which measures 10 mm in diameter. No obvious causes visualized on these views. Pancreas not well-seen due to overlying gas. The right kidney was normal and measured 10 cm in length. There is no ascites. Portal vein is patent. Impression: Gallbladder itself appears unremarkable. There is, however, dilatation of the common duct which measures about 10 mm in diameter. Pancreas is not well seen. There is no obvious cause for the common duct dilatation on this study. I would consider further evaluation with MRCP as clinically warranted. Dictated by: Dictated on workstation # [id number]
== END ==
LOC: RAD 11:24
PROVIDERS: ATTEND Internal Medicine
DX: K82.8 Other specified diseases of gallbladder (principal)
CPT/HCPCS: 76705

== ENCOUNTER → 2017-08-25 | Outpatient (CLI) | payer MEDICARE ==
[~2017-08-25] MED LIST changes: +CATHETER FLUSH 10 ML SYR IV PRN
--- NOTE | 2017-08-25 17:39 | Diagnostic Imaging Report ---
EXAMINATION: Hepatobiliary Scan with ejection fraction. INDICATION: Abdominal pain. This study was performed following administration of 5.04 mCi of Choletec and 8 ounces of Ensure. There are no previous hepatobiliary scans available for comparison. FINDINGS: The abdominal ultrasound exam of 08/24/2017 failed to show any sign of cholelithiasis or acute cholecystitis. However, the common bile duct did appear to be dilated. On this study, there is uptake of the radiotracer by the gallbladder before 30 minutes. This would weigh against the diagnosis of acute cholecystitis. There is also extension of the radiotracer into the small bowel indicating that the common bile duct is not obstructed. The ejection fraction is 98% (normal greater than 35%). IMPRESSION: 1. There is no evidence for acute cholecystitis. The common bile duct does not appear to be obstructed either. If further evaluation of the common bile duct is desired, then MRCP would be recommended. 2. The ejection fraction is 98% and well within normal limits. Dictated by: Dictated on workstation # [id number]
== END ==
LOC: CARD 13:40
PROVIDERS: ATTEND Internal Medicine
DX: R10.11 Right upper quadrant pain (principal)
CPT/HCPCS: 78227

== ENCOUNTER → 2017-08-31 | Outpatient (CLI) | payer MEDICARE ==
[~2017-08-31] MED LIST changes: -CATHETER FLUSH 10 ML SYR IV PRN
--- NOTE | 2017-08-31 10:30 | Diagnostic Imaging Report ---
PROCEDURE: MR imaging cholangiography-pancreatography. TECHNIQUE: Multiplanar imaging of the abdomen was performed on a 1.5 Marline magnet without contrast. 3D reconstructions were made for the MRCP INDICATION: Epigastric pain. COMPARISON: Nuclear medicine hepatobiliary scan from 08/25/2017 and gallbladder ultrasound of 08/24/2017. FINDINGS: The gallbladder is normally distended without filling defects to indicate cholelithiasis. No gallbladder wall thickening or pericholecystic fluid. No intrahepatic biliary duct dilatation is present. Common bile duct is mildly dilated measuring 8 mm. There appears to be an area of abrupt stricturing in the distal common bile duct at the level of the pancreatic head, and this appears secondary to a fluid-filled duodenal diverticulum arising from the second portion of the duodenum. This diverticulum measures approximately 1.0 x 1.1 cm. No filling defects within the common bile duct to indicate choledocholithiasis. The pancreatic duct is not dilated. No pancreatic divisum. No hepatic steatosis. Assessment of the abdominal viscera is limited without IV contrast. No T2 hyperintense masses within the liver or kidneys. No hydronephrosis. No upper abdominal lymphadenopathy. There is signal void artifact within the vertebral bodies secondary to posterior instrumented fusion. Normal caliber abdominal aorta. IMPRESSION: 1. No cholelithiasis or choledocholithiasis. 2. Mildly dilated common bile duct does not have associated intrahepatic biliary duct dilatation. Focal luminal narrowing on the distal common bile duct appears to be due to external compression from a small diverticulum arising from the second portion of the duodenum. Nuclear medicine HIDA scan demonstrates the common bile duct to remain patent and this luminal narrowing is therefore not flow limiting in the common bile duct. Dictated by: Dictated on workstation # [id number]
== END ==
LOC: RAD 09:23
PROVIDERS: ATTEND Internal Medicine
DX: K83.8 Other specified diseases of biliary tract (principal)
CPT/HCPCS: 74181

== ENCOUNTER → 2017-10-11 | Outpatient (CLI) | payer MEDICARE ==
--- NOTE | 2017-10-11 09:17 | Diagnostic Imaging Report ---
PROCEDURE: CT chest without contrast. TECHNIQUE: Multiple contiguous axial images were obtained through the chest without the use of intravenous contrast. INDICATION: Enlarging thoracic aorta. Comparison is made with prior examination 11/02/2016. FINDINGS: The ascending aorta measures up to 3.6 cm AP. Aortic arch and descending aorta are normal in caliber. Heart size is normal. There are coronary artery calcifications. There is no pathologically enlarged adenopathy in the chest. There are no discrete pulmonary nodules, masses or infiltrates. There is minimal scarring in the lung bases. There is no pleural or pericardial fluid. There is no pneumothorax. There are postsurgical changes of thoracolumbar fusion. The visualized intra-abdominal structures are unremarkable. IMPRESSION: The ascending aorta measures up to 3.6 cm. Moderate coronary artery calcifications. Minimal scarring in lung bases. Dictated by: Dictated on workstation # [id number]
== END ==
LOC: RAD 08:37
PROVIDERS: ATTEND Internal Medicine
DX: I77.810 Thoracic aortic ectasia (principal); I25.10 Atherosclerotic heart disease of native coronary artery without angina pectoris
CPT/HCPCS: 71250

== ENCOUNTER → 2018-06-30 | Outpatient (CLI) | payer MEDICARE ==
[~2018-06-30] MED LIST changes: +HYDR-4226 PO; -HYDR-757 PO
--- NOTE | 2018-06-30 13:46 | Diagnostic Imaging Report ---
INDICATION: Abdominal pain. FINDINGS: Proximal aorta measures 1.8 x 2.3 cm. Mid inferior abdominal aorta measures 1.4 x 1.4 cm. Distal aorta measures 1.1 x 1.7 cm. Neither iliac was well visualized due to bowel gas. IMPRESSION: No evidence of abdominal aortic aneurysm. Dictated by: Dictated on workstation # [id number]
== END ==
LOC: RAD 07:50
PROVIDERS: ATTEND Internal Medicine
DX: I77.819 Aortic ectasia, unspecified site (principal)
CPT/HCPCS: 76775

== ENCOUNTER 2018-07-11 05:53 | Outpatient (CLI) | payer MEDICARE ==
[~2018-07-11] VITALS: Ht 160 cm; Wt 56.7 kg
[2018-07-13] MEDS ORDERED: PANT40TA2 PO (12:16)
== END 2018-07-11 11:00 | disposition home or self-care (01) ==
LOC: PREOP 05:53
PROVIDERS: ATTEND Surgery
DX: Z01.818 Encounter for other preprocedural examination (principal)

== ENCOUNTER 2018-07-13 09:54 | Day surgery (SDC) | payer MEDICARE ==
[~2018-07-13] VITALS: Ht 160 cm; Wt 56.7 kg
[2018-07-13] MEDS ORDERED: NS IV 500 ML 500 ML IV PRN (10:04)
[2018-07-13] MEDS ORDERED: NS IV 500 ML 500 ML ONE (10:05)
[2018-07-13] MEDS ORDERED: MIDAZOLAM 2 MG/2 ML (VERSED) VIAL IVP ONE (10:15)
[2018-07-13] MEDS ORDERED: HURRICAINE EXT TUBE (BENZOCAINE) XX PRN (10:15)
[2018-07-13] MEDS ORDERED: LIDOCAINE JELLY 2% 6 ML SYRINGE MM PRN (10:15)
[2018-07-13] MEDS ORDERED: fentaNYL INJECTION 100 MCG/2 ML AMP IVP ONE (10:15)
[2018-07-13 10:20] VITALS: BP 133/58
--- OUTSIDE RECORDS SUMMARY | 2018-07-13 10:22 | XMS REPORT ---
Author Author AMADO JENNINGS Organization [facility] Address [address] [place] [address] Care Team Providers Care Clinic Office Coordinator Name Role Phone AMADO JENNINGS Unavailable PROBLEMS Unknown Problems ALLERGIES No Information ENCOUNTERS Encounter Location Date Diagnosis [facility] [address] [facility] [id number], [place] [address] Dec, Encounter for immunization Z23 [facility] IN [facility] [address] [facility] [id number], [place] [address] Mar, Encounter for immunization Z23 [facility] [address] [facility] [id number], [place] [address] Aug, Encounter for immunization Z23 IMMUNIZATIONS Vaccine Route Administration Date Status FLULAVAL QUAD 0.5ML (6 MO & UP) 2017 IM Intramuscular Dec 21, 2017 Administered SOCIAL HISTORY Never Assessed REASON FOR VISIT Flu shot PLAN OF CARE VITAL SIGNS MEDICATIONS Unknown Medications RESULTS No Results PROCEDURES Procedure Date Ordered Result Body Site FLULAVAL QUAD 0.5ML (6 MO AND UP) 2017Dec 21, 2017 FLULAVAL QUAD 0.5ML (6 MO & UP) 2017Dec 21, 2017 SINGLE IMMUNIZATION ADMIN Dec 21, 2017 INSTRUCTIONS MEDICATIONS ADMINISTERED No Known Medications
--- OUTSIDE RECORDS SUMMARY | 2018-07-13 10:22 | XMS REPORT ---
Author Author AMADO JENNINGS Organization [facility] Address [address] [place] [address] Care Team Providers Care Rotary Engine Assembler Name Role Phone AMADO JENNINGS Unavailable PROBLEMS Unknown Problems ALLERGIES No Information ENCOUNTERS Encounter Location Date Diagnosis [facility] [address] [facility] [facility] [id number], [place] [address] Mar, Encounter for immunization Z23 [facility] [address] [facility] [facility] [id number], [place] [address] Aug, Encounter for immunization Z23 IMMUNIZATIONS Vaccine Route Administration Date Status FLUZONE HIGH DOSE (65 AND UP) 2017 IM Intramuscular Apr 03, 2017 Administered SOCIAL HISTORY Never Assessed REASON FOR VISIT Flu shot [id number] PLAN OF CARE VITAL SIGNS MEDICATIONS Unknown Medications RESULTS No Results PROCEDURES Procedure Date Ordered Result Body Site FLUZONE HIGH DOSE 65 AND UP 2015Apr 03, 2017 SINGLE IMMUNIZATION ADMIN Apr 03, 2017 INSTRUCTIONS MEDICATIONS ADMINISTERED No Known Medications
--- OUTSIDE RECORDS SUMMARY | 2018-07-13 10:24 | XMS REPORT | Continuity of Care Document ---
Author Organization Unknown Address Unknown Allergies Active Description Code Type Severity Reaction Onset Reported/Identified Relationship to Patient Clinical Status Yes No Known Drug Allergies [id number] Drug Allergy Unknown N/A 12/30/2016 Yes Sulfa (Sulfonamide Antibiotics) [id number] Drug Allergy Unknown N/A 2018 Medications There is no data. Problems Date Dx Coded Attending Type Code [...] 03/05/2014 JANELLE BIRMINGHAM DO Ot 737.30 03/12/2014 VALENCIA LEBLANC JANELLE Kristie Ot 737.30 04/04/2014 Ot V76.12 04/04/2014 Ot V72.84 04/04/2014 Ot 715.34 04/04/2014 Ot 793.82 04/04/2014 Ot V76.12 04/04/2014 BIRMINGHAMRHODA LEBLANC JANELLE Kristie Ot 722.52 04/04/2014 BIRMINGHAMJANELLE DUONG DO Ot 737.30 04/04/2014 VALENCIA LEBLANC JANELLE Kristie Ot 786.07 04/04/2014 BIRMINGHAMRHODA LEBLANC JANELLE Kristie Ot 786.2 04/04/2014 BIRMINGHAMRHODA LEBLANC JANELLE Kristie Ot 722.10 04/04/2014 BIRMINGHAMJANELLE DUONG DO Ot 722.52 04/04/2014 JANELLE BIRMINGHAM DO Ot 737.30 04/04/2014 VALENCIA LEBLANC JANELLE Kristie Ot V76.12 04/04/2014 JANELLE BIRMINGHAM DO Ot 737.30 04/30/2014 DOM HINTON, CRISTAL Preston Ot 733.90 04/30/2014 DOM HINTON, CRISTAL Preston Ot 733.90 05/16/2014 DOM HINTON, CRISTAL Preston Ot 786.05 05/16/2014 DOM HINTON, CRISTAL Preston Ot V72.81 05/17/2014 DOM HINTON, CRISTAL Preston Ot 786.05 05/17/2014 CRISTAL FERNANDES MD Ot [...] Ot 737.30 IDIOPATHIC SCOLIOSIS 07/13/2014 NOEL HURD MD Ot V58.69 OT MED,LT,CURRENT USE 07/19/2014 NOEL HURD MD Ot 722.52 07/19/2014 NOEL HURD MD, Ot 737.30 07/19/2014 NOEL HURD MD Ot V58.69 08/10/2014 NOEL HURD MD Ot 722.52 08/10/2014 NOEL HURD MD Ot 737.30 08/10/2014 NOEL HURD MD Ot V58.69 08/10/2014 AMELIA HINTON, VINCE Z Ot 729.81 09/05/2014 AEMLIA HINTON, VINCE Z Ot 729.81 10/26/2014 JANELLE BIRMINGHAM DO Ot 457.1 10/26/2014 JANELLE BIRMINGHAM DO Ot V57.21 11/23/2014 JANELLE BIRMINGHAM DO Ot 457.1 OTHER LYMPHEDEMA 11/23/2014 JANELLE BIRMINGHAM DO Ot V57.21 ENCOUNTER FOR OCCUPATIONAL THERAPY 12/11/2014 JANELLE BIRMINGHAM DO Ot V76.12 12/26/2015 Ot V76.12 OT SCREEN MAMMO-MALIGN NEOPLASM OF GRAD[place] 12/26/2015 Ot V72.84 EXAM PRE- OPERATIVE NOS 12/26/2015 Ot 715.34 LOC OSTEOARTH NOS-HAND [...] BREATH 12/26/2015 CRISTAL FERNANDES MD Ot V72.81 [id number] CARDIOVASCULAR 12/26/2015 CRISTAL FERNANDES MD Ot 733.90 BONE CARTILAGE DIS NOS 12/26/2015 NOEL HURD MD Ot 722.52 LUMB/LUMBOSAC DISC DEGEN 12/26/2015 NOEL HURD MD Ot 737.30 IDIOPATHIC SCOLIOSIS 12/26/2015 NOEL HURD MD Ot V58.69 OT MED,LT,CURRENT USE 12/26/2015 AMELIA HINTON, VINCE Roach Ot 729.81 SWELLING OF LIMB 12/26/2015 JANELLE [...] Z12.31 ENCNTR SCREEN MAMMOGRAM FOR MALIGNANT NE 07/21/2016 DAYLIN TIM MD Ot Z01.818 ENCOUNTER FOR OTHER PREPROCEDURAL EXAMIN 07/21/2016 DAYLIN TIM MD Ot Z12.11 ENCOUNTER FOR SCREENING FOR MALIGNANT NE 07/21/2016 DAYLIN TIM MD Ot Z80.0 FAMILY HISTORY OF MALIGNANT NEOPLASM OF 07/22/2016 DAYLIN TIM MD Ot Z01.818 ENCOUNTER FOR OTHER PREPROCEDURAL EXAMIN 07/22/2016 DAYLIN TIM MD Ot Z12.11 ENCOUNTER FOR SCREENING FOR MALIGNANT NE 07/22/2016 DAYLIN TIM MD Ot Z80.0 FAMILY HISTORY OF MALIGNANT NEOPLASM OF 07/24/2016 DAYLIN TIM MD Ot E78.5 HYPERLIPIDEMIA, UNSPECIFIED 07/24/2016 DAYLIN TIM MD Ot I25.10 ATHSCL HEART DISEASE OF [place] CORONARY 07/24/2016 DAYLIN TIM MD Ot K57.30 DVRTCLOS OF LG INT W/O PERFORATION OR AB 07/24/2016 DAYLIN TIM MD Ot Z12.11 ENCOUNTER FOR SCREENING FOR MALIGNANT NE 07/24/2016 DAYLIN TIM MD Ot Z79.899 OTHER GROUP HOME (CURRENT) DRUG THERAPY 07/24/2016 DAYLIN TIM MD Ot Z80.0 FAMILY HISTORY OF MALIGNANT NEOPLASM OF 07/27/2016 DAYLIN TIM MD Ot Z01.818 ENCOUNTER FOR OTHER PREPROCEDURAL EXAMIN 07/27/2016 DAYLIN TIM MD Ot Z12.11 ENCOUNTER FOR SCREENING FOR MALIGNANT NE 07/27/2016 DAYLIN TIM MD Ot Z80.0 FAMILY HISTORY OF MALIGNANT NEOPLASM OF 07/29/2016 DAYLIN TIM MD, Ot E78.5 HYPERLIPIDEMIA, UNSPECIFIED 07/29/2016 DAYLIN TIM MD Ot I25.10 ATHSCL HEART DISEASE OF [place] CORONARY 07/29/2016 DAYLIN TIM MD Ot K57.30 DVRTCLOS OF LG INT W/O PERFORATION OR AB 07/29/2016 DAYLIN TIM MD Ot Z12.11 ENCOUNTER FOR SCREENING FOR MALIGNANT NE 07/29/2016 DAYLIN TIM MD Ot Z79.899 OTHER GROUP HOME (CURRENT) DRUG THERAPY 07/29/2016 MEETA HINTON, DAYLIN Jones Ot Z80.0 FAMILY HISTORY OF MALIGNANT NEOPLASM OF 09/16/2016 JANELLE BIRMINGHAM DO Ot M48.02 SPINAL STENOSIS, CERVICAL REGION 09/16/2016 BIRMINGHAMJANELLE KC DO Ot 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 09/16/2016 BIRMINGHAMJANELLE DUONG DO Ot Z98.1 ARTHRODESIS STATUS 09/16/2016 BIRMINGHAMJANELLE KC DO Ot M48.02 SPINAL STENOSIS, CERVICAL REGION 09/16/2016 [place] JANELLE LEBLANC Ot 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 09/16/2016 BIRMINGHAMJANELLE KC DO Ot Z98.1 ARTHRODESIS STATUS 09/16/2016 BIRMINGHAMJANELLE KC DO Ot M48.02 SPINAL STENOSIS, CERVICAL REGION 09/16/2016 BIRMINGHAMJANELLE KC DO Ot 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 09/16/2016 BIRMINGHAMJANELLE KC DO Ot Z98.1 ARTHRODESIS STATUS 09/16/2016 BIRMINGHAMJANELLE KC DO Ot M48.02 SPINAL STENOSIS, CERVICAL REGION 09/16/2016 BIRMINGHAMJANELLE KC DO Ot 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 09/16/2016 BIRMINGHAMJANELLE KC DO Ot Z98.1 ARTHRODESIS STATUS 09/16/2016 BIRMINGHAMJANELLE KC DO Ot M48.02 SPINAL STENOSIS, CERVICAL REGION 09/16/2016 BIRMINGHAMJANELLE KC DO Ot 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 09/16/2016 BIRMINGHAMJANELLE KC DO Ot Z98.1 ARTHRODESIS STATUS 09/16/2016 BIRMINGHAMJANELLE KC DO Ot M48.02 SPINAL STENOSIS, CERVICAL REGION 09/16/2016 BIRMINGHAMJANELLE KC DO Ot 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 09/16/2016 BIRMINGHAM DOJANELLE Ot Z98.1 ARTHRODESIS STATUS 09/16/2016 BIRMINGHAMJANELLE KC DO Ot M48.02 SPINAL STENOSIS, CERVICAL REGION 09/16/2016 BIRMINGHAMJANELLE KC DO Ot 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 09/16/2016 BIRMINGHAMJANELLE KC DO Ot Z98.1 ARTHRODESIS STATUS 09/21/2016 JANELLE [...] ISHMAEL GUAN MD Ot Z98.1 ARTHRODESIS STATUS 12/30/2016 ISHMAEL GUAN MD Ot M79.662 PAIN IN LEFT LOWER LEG 12/30/2016 ISHMAEL GUAN MD Ot Z01.818 ENCOUNTER FOR OTHER PREPROCEDURAL EXAMIN 12/30/2016 Ot V72.84 EXAM PRE- OPERATIVE NOS 12/30/2016 Ot 715.34 LOC OSTEOARTH NOS-HAND 12/30/2016 Ot 793.82 INCONCLUSIVE MAMMOGRAM 12/30/2016 Ot V76.12 OT SCREEN MAMMO-MALIGN NEOPLASM OF GRADY 12/30/2016 JANELLE BIRMINGHAM DO Ot 722.52 LUMB/LUMBOSAC DISC DEGEN 12/30/2016 JANELLE BIRMINGHAM DO Ot 737.30 IDIOPATHIC SCOLIOSIS 12/30/2016 JANELLE BIRMINGHAM DO Ot 786.07 WHEEZING 12/30/2016 JANELLE BIRMINGHAM DO Ot 786.2 COUGH 12/30/2016 JANELLE BIRMINGHAM DO Ot 722.10 LUMBAR DISC DISPLACEMENT 12/30/2016 JANELLE BIRMINGHAM DO Ot 722.52 LUMB/LUMBOSAC DISC DEGEN 12/30/2016 JANELLE BIRMINGHAM DO Ot 737.30 IDIOPATHIC SCOLIOSIS 12/30/2016 JANELLE BIRMINGHAM DO Ot V76.12 OTH SCREEN MAMMO-MALIGN NEOPLASM OF GRADY 12/30/2016 JANELLE BIRMINGHAM DO Ot 737.30 IDIOPATHIC SCOLIOSIS 12/30/2016 CRISTAL FERNANDES MD Ot 733.90 BONE CARTILAGE DIS NOS 12/30/2016 CRISTAL FERNANDES MD Ot 786.05 SHORTNESS OF BREATH 12/30/2016 CRISTAL FERNANDES MD Ot V72.81 [id number] CARDIOVASCULAR 12/30/2016 CRISTAL FERNANDES MD Ot 733.90 BONE CARTILAGE DIS NOS 12/30/2016 NOEL HURD MD Ot 722.52 LUMB/LUMBOSAC DISC DEGEN 12/30/2016 NOEL HURD MD Ot 737.30 IDIOPATHIC SCOLIOSIS 12/30/2016 NOEL HURD MD Ot V58.69 OT MED,LT,CURRENT USE 12/30/2016 AMELIA HINTON, VINCE Z Ot 729.81 SWELLING OF LIMB 12/30/2016 JANELLE BIRMINGHAM DO Ot V76.12 OTH SCREEN MAMMO-MALIGN NEOPLASM OF GRAD[place] 12/30/2016 JANELLE BIRMINGHAM DO Ot Z12.31 ENCNTR SCREEN MAMMOGRAM FOR MALIGNANT NE 12/30/2016 JANELLE BIRMINGHAM DO Ot Z12.31 ENCNTR SCREEN MAMMOGRAM FOR MALIGNANT NE 12/30/2016 JANELLE BIRMINGHAM DO Ot M48.02 SPINAL STENOSIS, CERVICAL REGION 12/30/2016 JANELLE BIRMINGHAM DO Ot 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 12/30/2016 JANELLE BIRMINGHAM DO Ot Z98.1 ARTHRODESIS STATUS 12/30/2016 ISHMAEL GUAN MD Ot M54.5 LOW BACK PAIN 12/30/2016 ISHMAEL GUAN MD Ot Z98.1 ARTHRODESIS STATUS 01/01/2017 ISHMAEL GUAN MD Ot G62.9 POLYNEUROPATHY, UNSPECIFIED 01/01/2017 ISHMAEL GUAN MD Ot M19.91 PRIMARY OSTEOARTHRITIS, UNSPECIFIED SITE 01/01/2017 ISHMAEL GUAN MD Ot M41.9 SCOLIOSIS, UNSPECIFIED 01/01/2017 ISHMAEL GUAN MD Ot T84.84XA PAIN DUE TO INTERNAL ORTHOPEDIC PROSTH D 01/01/2017 ISHMAEL GUAN MD Ot Z79.899 OTHER GROUP HOME (CURRENT) DRUG THERAPY 01/04/2017 ISHMAEL GUAN MD, Ot G62.9 POLYNEUROPATHY, UNSPECIFIED 01/04/2017 ISHMAEL GUAN MD Ot M19.91 PRIMARY OSTEOARTHRITIS, UNSPECIFIED SITE 01/04/2017 ISHMAEL GUAN MD, Ot M41.9 SCOLIOSIS, UNSPECIFIED 01/04/2017 ISHMAEL GUAN MD, Ot T84.84XA PAIN DUE TO INTERNAL ORTHOPEDIC PROSTH D 01/04/2017 ISHMAEL GUAN MD, Ot Z79.899 OTHER [employer] (CURRENT) DRUG THERAPY 01/07/2017 ISHMAEL GUAN MD, Ot G62.9 POLYNEUROPATHY, UNSPECIFIED 01/07/2017 ISHMAEL GUAN MD, Ot M19.91 PRIMARY OSTEOARTHRITIS, UNSPECIFIED SITE 01/07/2017 ISHMALE GUAN MD, Ot M41.9 SCOLIOSIS, UNSPECIFIED 01/07/2017 ISHMAEL GUAN MD, Ot T84.84XA PAIN DUE TO INTERNAL ORTHOPEDIC PROSTH D 01/07/2017 ISHMAEL GUAN MD, Ot Z79.899 OTHER SHEEP [employer] WHE[employer] F[employer]ER (CURRENT) DRUG THERAPY 07/19/2017 Ot 715.34 LOC OSTEOARTH NOS-HAND 07/19/2017 Ot 793.82 INCONCLUSIVE MAMMOGRAM 07/19/2017 Ot V76.12 OT SCREEN MAMMO-MALIGN NEOPLASM OF GRAD[place] 07/19/2017 JANELLE BIRMINGHAM DO Ot 722.52 LUMB/LUMBOSAC DISC DEGEN 07/19/2017 JANELLE BIRMINGHAM DO Ot 737.30 IDIOPATHIC SCOLIOSIS 07/19/2017 JANELLE BIRMINGHAM DO Ot 786.07 WHEEZING 07/19/2017 JANELLE BIRMINGHAM DO, Ot 786.2 COUGH 07/19/2017 JANELLE BIRMINGHAM DO Ot 722.10 LUMBAR DISC DISPLACEMENT 07/19/2017 JANELLE BIRMINGHAM DO, Ot 722.52 LUMB/LUMBOSAC DISC DEGEN 07/19/2017 JANELLE BIRMINGHAM DO Ot 737.30 IDIOPATHIC SCOLIOSIS 07/19/2017 JANELLE BIRMINGHAM DO, Ot V76.12 OTH SCREEN MAMMO-MALIGN NEOPLASM OF GRAD[place] 07/19/2017 JANELLE BIRMINGHAM DO Ot 737.30 IDIOPATHIC SCOLIOSIS 07/19/2017 DOM HINTON, CRISTAL Preston Ot 733.90 BONE CARTILAGE DIS NOS 07/19/2017 DOM HINTON, CRISTAL Preston Ot 786.05 SHORTNESS OF BREATH 07/19/2017 DOM HINTON, CRISTAL Preston Ot V72.81 [id number] CARDIOVASCULAR 07/19/2017 CRISTAL FERNANDES MD Ot 733.90 BONE CARTILAGE DIS NOS 07/19/2017 VANNESSA HINTON, NOEL Flowers Ot 722.52 LUMB/LUMBOSAC DISC DEGEN 07/19/2017 NOEL HURD MD Ot 737.30 IDIOPATHIC SCOLIOSIS 07/19/2017 NOEL HURD MD Ot V58.69 OT MED,LT,CURRENT USE 07/19/2017 AMELIA HINTON, VINCE Z Ot 729.81 SWELLING OF LIMB 07/19/2017 JANELLE BIRMINGHAM DO Ot V76.12 OTH SCREEN MAMMO-MALIGN NEOPLASM OF GRADY 07/19/2017 JANELLE BIRMINGHAM DO Ot Z12.31 ENCNTR SCREEN MAMMOGRAM FOR MALIGNANT NE 07/19/2017 JANELLE BIRMINGHAM DO, Ot Z12.31 ENCNTR SCREEN MAMMOGRAM FOR MALIGNANT NE 07/19/2017 JANELLE BIRMINGHAM DO Ot M48.02 SPINAL STENOSIS, CERVICAL REGION 07/19/2017 JANELLE BIRMINGHAM DO Ot 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 07/19/2017 JANELLE BIRMINGHAM DO Ot Z98.1 ARTHRODESIS STATUS 07/19/2017 ISHMAEL GUAN MD Ot M54.5 LOW BACK PAIN 07/19/2017 ISHMAEL GUAN MD Ot Z98.1 ARTHRODESIS STATUS 08/10/2017 CATALINA GARCIA Ot N64.4 MASTODYNIA 08/25/2017 JANELLE BIRMINGHAM DO Ot K82.8 OTHER SPECIFIED DISEASES OF [place] 08/27/2017 JANELLE BIRMINGHAM DO Ot R10.11 RIGHT UPPER QUADRANT PAIN 08/30/2017 JANELLE BIRMINGHAM DO Ot K82.8 OTHER SPECIFIED DISEASES OF [place] 08/31/2017 CATALINA GARCIA Ot N64.4 MASTODYNIA 09/01/2017 JANELLE BIRMINGHAM DO Ot K83.8 OTHER SPECIFIED DISEASES OF BILIARY TRAC 09/08/2017 CATALINA GARCIA COMIC ILLUSTRATOR Ot N64.4 MASTODYNIA 09/15/2017 JANELLE BIRMINGHAM DO Ot K82.8 OTHER SPECIFIED DISEASES OF [place] 09/15/2017 JANELLE BIRMINGHAM DO Ot R10.11 RIGHT UPPER QUADRANT PAIN 09/21/2017 JANELLE BIRMINGHAM DO Ot K82.8 OTHER SPECIFIED DISEASES OF [place] 09/21/2017 JANELLE BIRMINGHAM DO Ot R10.11 RIGHT UPPER QUADRANT PAIN 09/23/2017 JANELLE BIRMINGHAM DO Ot K83.8 OTHER SPECIFIED DISEASES OF BILIARY TRAC 09/30/2017 JANELLE BIRMINGHAM DO Ot K83.8 OTHER SPECIFIED DISEASES OF BILIARY TRAC 10/11/2017 Ot 793.82 INCONCLUSIVE MAMMOGRAM 10/11/2017 Ot V76.12 OT SCREEN MAMMO-MALIGN NEOPLASM OF GRADY 10/11/2017 JANELLE BIRMINGHAM DO Ot 722.52 LUMB/LUMBOSAC DISC DEGEN 10/11/2017 JANELLE BIRMINGHAM DO Ot 737.30 IDIOPATHIC SCOLIOSIS 10/11/2017 JANELLE BIRMINGHAM DO Ot 786.07 WHEEZING 10/11/2017 JANELLE BIRMINGHAM DO Ot 786.2 COUGH 10/11/2017 JANELLE BIRMINGHAM DO Ot 722.10 LUMBAR DISC DISPLACEMENT 10/11/2017 JANELLE BIRMINGHAM DO Ot 722.52 LUMB/LUMBOSAC DISC DEGEN 10/11/2017 JANELLE BIRMINGHAM DO Ot 737.30 IDIOPATHIC SCOLIOSIS 10/11/2017 JANELLE BIRMINGHAM DO, Ot V76.12 OTH SCREEN MAMMO-MALIGN NEOPLASM OF GRADY 10/11/2017 JANELLE BIRMINGHAM DO Ot 737.30 IDIOPATHIC SCOLIOSIS 10/11/2017 CRISTAL FERNANDES MD Ot 733.90 BONE CARTILAGE DIS NOS 10/11/2017 CRISTAL FERNANDES MD Ot 786.05 SHORTNESS OF BREATH 10/11/2017 CRISTAL FERNANDES MD Ot V72.81 [id number] CARDIOVASCULAR 10/11/2017 CRISTAL FERNANDES MD Ot 733.90 BONE CARTILAGE DIS NOS 10/11/2017 NOEL HURD MD, Ot 722.52 LUMB/LUMBOSAC DISC DEGEN 10/11/2017 NOEL HURD MD, Ot 737.30 IDIOPATHIC SCOLIOSIS 10/11/2017 VANNESSA HINTON, NOEL Flowers Ot V58.69 OT MED,LT,CURRENT USE 10/11/2017 AMELIA HINTON, VINCE Roach Ot 729.81 SWELLING OF LIMB 10/11/2017 JANELLE BIRMINGHAM DO, Ot V76.12 OT SCREEN MAMMO-MALIGN NEOPLASM OF GRADY 10/11/2017 JANELLE BIRMINGHAM DO, Ot Z12.31 ENCNTR SCREEN MAMMOGRAM FOR MALIGNANT NE 10/11/2017 JANELLE BIRMINGHAM DO, Ot Z12.31 ENCNTR SCREEN MAMMOGRAM FOR MALIGNANT NE 10/11/2017 JANELLE BIRMINGHAM DO Ot M48.02 SPINAL STENOSIS, CERVICAL REGION 10/11/2017 JANELLE BIRMINGHAM DO Ot 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 10/11/2017 JANELLE BIRMINGHAM DO, Ot Z98.1 ARTHRODESIS STATUS 10/11/2017 ISHMAEL GUAN MD Ot M54.5 LOW BACK PAIN 10/11/2017 ISHMAEL GUAN MD, Ot Z98.1 ARTHRODESIS STATUS 10/11/2017 CATALINA GARCIA Ot N64.4 MASTODYNIA 10/11/2017 JANELLE BIRMINGHAM DO Ot K82.8 OTHER SPECIFIED DISEASES OF [place] 10/11/2017 JANELLE BIRMINGHAM DO Ot R10.11 RIGHT UPPER QUADRANT PAIN 10/11/2017 JANELLE BIRMINGHAM DO Ot K83.8 OTHER SPECIFIED DISEASES OF BILIARY TRAC 10/11/2017 JANELLE BIRMINGHAM DO Ot I25.10 ATHSCL HEART DISEASE OF [place] CORONARY 10/11/2017 JANELLE BIRMINGHAM DO, Ot I77.810 THORACIC AORTIC ECTASIA 10/11/2017 JANELLE BIRMINGHAM DO, Ot I25.10 ATHSCL HEART DISEASE OF [place] CORONARY 10/11/2017 JANELLE BIRMINGHAM DO, Ot 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 Results Test Result Range Methicillin resistant Staphylococcus aureus (MRSA) screening culture - 06:30 Methicillin resistant Staphylococcus aureus (MRSA) screening culture [id number] NRG Encounters ACCT No. Visit Date/Time Discharge Status Pt. Type Provider Facility Loc./Unit Complaint [id number] 07/11/2018 05:53:00 07/11/2018 11:00:00 DIS Outpatient LAST FISHER MD [facility] PREOP EGD [id number] 06/30/2018 07:50:00 06/30/2018 23:59:59 CLS Outpatient JANELLE BIRMINGHAM DO [facility] RAD AORTIC ECTASIA, AORTIC CALCIFICATION [id number] 04/20/2018 10:45:00 04/20/2018 23:59:59 CLS Preadmit JANELLE BIRMINGHAM DO [facility] RAD MENOPAUSE [id number] 10/11/2017 08:37:00 10/11/2017 23:59:59 CLS Outpatient JANELLE BIRMINGHAM DO [facility] RAD THORACIC ECTASIA [id number] 08/31/2017 09:30:00 08/31/2017 23:59:59 CLS Outpatient JANELLE BIRMINGHAM DO [facility] RAD EPIGASTRIC PAIN [id number] 08/25/2017 13:40:00 08/25/2017 23:59:59 CLS Outpatient JANELLE BIRMINGHAM DO [facility] CARD RIGHT UPPER QUAD PAIN [id number] 08/24/2017 11:24:00 08/24/2017 23:59:59 CLS Outpatient JANELLE BIRMINGHAM DO [facility] RAD RUQ PAIN [id number] 08/09/2017 13:26:00 08/09/2017 23:59:59 CLS Outpatient CATALINA GARCIA [facility] RAD N64.4 PAIN OF LEFT BREAST [id number] 01/01/2017 06:14:00 01/01/2017 12:09:00 DIS Outpatient ISHMAEL GUAN MD [facility] SDC PAINFUL HARDWARE [id number] 12/30/2016 08:16:00 12/30/2016 08:30:00 DIS Outpatient ISHMAEL GUAN MD [facility] PREOP PAINFUL HARDWARE [id number] 11/02/2016 07:34:00 11/02/2016 23:59:59 CLS Outpatient ISHMAEL GUAN MD [facility] RAD BACK PAIN M54.5 [id number] 09/29/2016 14:24:00 09/29/2016 23:59:59 CLS Preadmit ISHMAEL GUAN MD [facility] RAD BACK PAIN [id number] 09/15/2016 16:15:00 09/15/2016 23:59:59 CLS Preadmit JANELLE BIRMINGHAM DO [facility] RAD M48.06 [id number] 09/15/2016 09:28:00 09/15/2016 23:59:59 CLS Outpatient JANELLE BIRMINGHAM DO [facility] RAD M48.06 [id number] 07/24/2016 06:59:00 07/24/2016 10:10:00 DIS Outpatient DAYLIN TIM MD [facility] ENDO SCREENING, FAMILY HISTORY OF COLON CANCER [id number] 07/21/2016 05:41:00 07/21/2016 11:56:00 DIS Outpatient DAYLIN TIM MD [facility] PREOP SCREENINNG, FAMILY HISTORY OF COLON CANCER [id number] 02/04/2016 09:19:00 02/04/2016 23:59:59 CLS Outpatient JANELLE BIRMINGHAM DO [facility] RAD SCREENING [id number] 12/26/2015 11:01:00 12/26/2015 23:59:59 CLS Outpatient JANELLE BIRMINGHAM DO [facility] RAD SCREENING [id number] 10/31/2014 16:01:00 11/23/2014 14:23:00 DIS Outpatient JANELLE BIRMINGHAM DO [facility] REHAB LYMPHEDEMA MASSAGE [id number] 11/20/2014 10:59:00 11/20/2014 23:59:59 CLS Outpatient JANELLE BIRMINGHAM DO [facility] RAD SCREENING [id number] 07/13/2014 07:35:00 07/13/2014 08:28:00 DIS Outpatient NOEL HURD MD [facility] CARD DDD [id number] 07/11/2014 15:20:00 07/11/2014 23:59:59 CLS Outpatient VINCE CISNEROS MD [facility] RAD LEFT LOWER EXTREMITY SWELLING SCREENING FOR DVT [id number] 06/11/2014 14:11:00 06/11/2014 23:59:59 CLS Outpatient NOEL HURD MD [facility] CARD DDD LUMBAR [id number] 04/10/2014 13:43:00 04/10/2014 23:59:59 CLS Outpatient CRISTAL FERNANDES MD [facility] RAD OSTEOPENIA [id number] 04/05/2014 09:25:00 04/05/2014 23:59:59 CLS Outpatient CRISTAL FERNANDES MD [facility] RAD OSTEOPENIA [id number] 04/04/2014 07:53:00 04/04/2014 23:59:59 CLS Outpatient CRISTAL FERNANDES MD [facility] CARD PREOP OP CLEARANCE [id number] 02/05/2014 13:21:00 02/05/2014 23:59:59 CLS Outpatient JANELLE BIRMINGHAM DO [facility] RAD SCOLIOSIS [id number] 08/18/2013 08:29:00 08/18/2013 23:59:59 CLS Outpatient JANELLE BIRMINGHAM DO [facility] RAD ROTO SCOLEOSIS W/ RADICULOPATHY [id number] 08/10/2013 09:46:00 08/10/2013 23:59:59 CLS Outpatient JANELLE BIRMINGHAM DO [facility] RAD ROUTINE [id number] 02/23/2013 11:50:00 02/23/2013 23:59:59 CLS Outpatient JANELLE BIRMINGHAM DO [facility] RAD COUGH,WHEEZING [id number] 12/02/2012 11:01:00 12/02/2012 14:53:00 DIS Outpatient JANELLE BIRMINGHAM DO [facility] REHAB SCOLIOSIS WITH L RADICULOPATHY [id number] 09/05/2012 13:32:00 09/05/2012 23:59:59 CLS Outpatient JANELLE BIRMINGHAM DO [facility] RAD LUMBAGO [id number] 07/13/2018 11:00:00 PEN Preadmit LAST FISHER MD [facility] ENDO EPIGASTRIC PAIN/NAUSEA [id number] 05/25/2014 14:40:00 Document Registration [id number] 04/22/2012 13:15:00 Document Registration [id number] 02/01/2012 13:55:00 Document Registration [id number] 10/16/2011 07:04:00 Document Registration [id number] 10/15/2011 08:08:00 Document Registration [id number] 03/02/2011 08:46:00 Document Registration [id number] 11/20/2014 10:59:59 ACT Document Registration [id number] 04/03/2017 12:35:00 04/03/2017 23:59:59 [facility] Outpatient JANELLE BIRMINGHAM DO [facility]
[2018-07-13] MEDS ORDERED: MIDAZOLAM 2 MG/2 ML (VERSED) VIAL ONE ×4 (11:58→12:31)
[2018-07-13] MEDS ORDERED: LIDOCAINE JELLY 2% 6 ML SYRINGE ONE (11:59)
[2018-07-13] MEDS ORDERED: HURRICAINE EXT TUBE (BENZOCAINE) ONE (11:59)
[2018-07-13] MEDS ORDERED: fentaNYL INJECTION 100 MCG/2 ML AMP ONE (11:59)
--- NOTE | 2018-07-13 12:13 | Conscious Sedation/ASA ---
Conscious Sedation Pre-Proced Time 12:00 ASA Score 2 For ASA 3 and 4: Consider anesthesia and medical clearance. Also, for patients with a history of failed moderate sedation consider anesthesia. Airway Lungs Heart ASA score ASA 1: a normal healthy patient ASA 2: a patient with a mild systemic disease (mid diabetes, controlled hypertension, obesity ASA 3: a patient with a severe systemic disease that limits activity (angina , COPD, prior Myocardial infarction) ASA 4: a patient with an incapacitating disease that is a constant threat to life (CHF, renal failure) ASA 5: a moribund patient not expected to survive 24 hrs. (ruptured aneurysm) ASA 6: a declared brain- patient whose organs are being harvested. For emergent operations, add the letter E after the classification Mallampati Classification Grade 2 Sedation Plan Analgesia, Amnesia, Plan communicated to team members, Discussed options with patient/fam, Discussed risks with patient/fam The patient is an appropriate candidate to undergo the planned procedure, sedation, and anesthesia. The patient immediately re-assessed prior to indication. LAST FISHER MD Jul 13, 2018 12:13
--- NOTE | 2018-07-13 12:14 | Progress Note-Pre Operative ---
Pre-Operative Progress Note H&P Reviewed The H&P was reviewed, patient examined and no changes noted. Date Seen by Provider: Jul 13, 2018 Time Seen by Provider: 12:00 Date H&P Reviewed: Jul 13, 2018 Time H&P Reviewed: 12:00 Pre-Operative Diagnosis: GERD LAST FISHER MD Jul 13, 2018 12:13
[2018-07-13] MEDS ORDERED: ONDANSETRON 4 MG/2 ML (SDV) Z0FRAN IV PRN (12:15)
[2018-07-13] MEDS ORDERED: ACETAMINOPHEN 325 MG TABLET PO PRN (12:15)
[2018-07-13] MEDS ORDERED: morphine INJ 10 MG/ML 1ML (SYR OR VIAL) IV PRN (12:15)
[2018-07-13] MEDS ORDERED: HYDROcodone/APAP 5 MG/325 MG (LORTAB) TAB PO PRN (12:15)
[2018-07-13] MEDS ORDERED: PANT40TA2 PO (12:16)
--- NOTE | 2018-07-13 12:18 | Discharge Inst-Surgical ---
D/C Lap Instructions-KIDO New, Converted, or Re-Newed RX: RX on Chart Follow Up Activity as tolerated High Fiber Diet 25g or more per day Avoid Alcohol, Caffeine, Spicy [place] and Acid foods. Drink 64 fluid oz or more of fluids per day. Symptoms to Report: Fever over 101 degree F, Nausea/Vomiting If any problems/questions: Contact your physician or go to Emergency Room LAST FISHER MD Jul 13, 2018 12:18
[2018-07-13 12:45] VITALS: BP 111/57
[2018-07-13 13:20] VITALS: BP 111/57
--- NOTE | 2018-07-13 20:55 | OPERATIVE REPORT ---
DATE OF SERVICE: 07/13/2018 ATTENDING PRIMARY CARE PHYSICIAN: Dr. Jean Baptiste. PREOPERATIVE DIAGNOSIS: Gastroesophageal reflux disease and epigastric crampy pain. POSTOPERATIVE DIAGNOSES: Reflux esophagitis stage II, small to moderate size hiatal hernia approximately 2.5 cm in size, moderate gastritis, no distal obstructions. PROCEDURE: EGD with biopsy. SURGEON: Last Fisher MD ANESTHESIA: Conscious sedation. ESTIMATED BLOOD LOSS: Minimal. FINDINGS: Reflux esophagitis stage II, small to moderate size hiatal hernia approximately 2.5 cm in size, moderate gastritis, no distal obstructions. DISPOSITION: The patient tolerated the procedure well. INDICATIONS: The patient is a 73-year-old female, who has had intermittent recurrent issues with pain in the epigastric region, which may be spontaneous; however, may also occur during meals. She states that the pain is sharp and crampy in nature and radiates more in a cephalad fashion. She states that over time eventually this discomfort will resolve on its own. She does not report any conner episodes of nausea or no vomiting as well as no regurgitation. She also does not report any hematemesis, no coffee ground emesis. DESCRIPTION OF PROCEDURE: The patient was brought to the endoscopy suite, laid in left lateral decubitus position. After adequate IV pain and sedating medications and conscious sedation anesthesia, the mouthpiece was applied. The endoscope was then placed in the mouth visualizing the pharynx and hypopharyngeal region. Vocal cords, epiglottis and vallecula were identified and appeared to be normal. The endoscope was then gently intubated. The esophageal opening and esophagus was insufflated. The endoscope was then advanced through the first, second and third portions of the esophagus. At the level of the GE junction, a reflux esophagitis stage II was identified. The GE junction was slightly intrathoracic, which may indicate a type 1 hiatal hernia. There were no ulcers or strictures identified in this region. A biopsy was taken with forceps with visualization of good hemostasis. The endoscope was then advanced to the stomach and the endoscope was retroflexed visualizing a small to moderate size hiatal hernia, approximately 2.5 cm in size. There was also moderate severity gastritis towards the stomach antrum; however, no ulcerations, polyps or any neoplasms. A biopsy was taken of the antrum to rule out H. pylori with forceps with visualization of good hemostasis. The endoscope was then advanced to the pylorus and the first and second portion of the duodenum, which appeared normal with no distal obstructions. The endoscope was then slowly withdrawn while taking a second look and suctioning of residual air with no additional findings. The patient tolerated the procedure well. We will recommend conservative medical management at this time with the necessary lifestyle and diet accommodation including small and more frequent meals, avoidance of eating at night as well as head elevation while lying supine. We will also recommend moderation or cessation of alcohol, caffeinated beverages, spicy, greasy and acidic foods. We will also start her on Protonix 40 mg daily. If she has persistent or worsening symptoms despite maximum medical therapy, we will then discuss the possibility of a hiatal hernia repair as well as an antireflux procedure. However, before this, we would get an esophageal manometry study to rule out any esophageal dysmotility issues. Job ID: [id number] DocumentID: [id number] Dictated Date: 07/13/2018 13:12:30 Manager [employer] Date: 07/13/2018 20:55:21 Dictated By: LAST FISHER MD
== END 2018-07-13 13:20 | disposition home or self-care (01) ==
LOC: ENDO 09:54
PROVIDERS: ATTEND Surgery
DX: K21.0 Gastro-esophageal reflux disease with esophagitis (principal); K44.9 Diaphragmatic hernia without obstruction or gangrene; K29.50 Unspecified chronic gastritis without bleeding; E78.00 Pure hypercholesterolemia, unspecified; G62.9 Polyneuropathy, unspecified; M41.9 Scoliosis, unspecified; Z88.2 Allergy status to sulfonamides; Z79.899 Other long term (current) drug therapy

== ENCOUNTER 2018-08-10 15:59 | Inpatient (IN) | payer MEDICARE ==
[~2018-08-10] VITALS: Ht 158.8 cm; Wt 62.8 kg
[~2018-08-10 15:59] MED LIST changes: +PANT40TA2 PO
--- NOTE | 2018-08-10 16:05 | NUR ---
PT ORIGINALLY TAKEN TO FAST TRACK FOR EKG AND VITALS DUE TO NO ROOMS BEING AVAILABLE IN THE BACK. EXPLAINED THIS TO PT.
[2018-08-10] MEDS ORDERED: fentaNYL INJECTION 100 MCG/2 ML AMP IVP ONE ×2 (16:15→18:45)
--- NOTE | 2018-08-10 16:15 | NUR ---
BED 6 NOW AVAILABLE MOVED FROM FAST TRACK 1 TO ROOM 6. YUMIKO STEVENS TO ROOM
[2018-08-10 16:35] LABS: BASOPHILS % (AUTO) 0 % (0-10); EOSINOPHILS # (AUTO) 0.2 10^3/uL (0.0-0.3); EOSINOPHILS % (AUTO) 2 % (0-10); HEMATOCRIT 38 % (35-52); HEMOGLOBIN 12.9 G/DL (11.5-16.0); LYMPHOCYTES # (AUTO) 1.6 X 10^3 (1.0-4.0); LYMPHOCYTES % (AUTO) 14 % (12-44); MEAN CORPUSCULAR HEMOGLOBIN 30 PG (25-34); MEAN CORPUSCULAR HGB CONC 34 G/DL (32-36); MEAN CORPUSCULAR VOLUME 90 FL (80-99); MEAN PLATELET VOLUME 10.1 FL (7.4-10.4); MONOCYTES # (AUTO) 0.5 X 10^3 (0.0-1.0); MONOCYTES % (AUTO) 4 % (0-12); NEUTROPHILS # (AUTO) 9.1 X 10^3 (1.8-7.8); NEUTROPHILS % (AUTO) 80 % (42-75); PLATELET COUNT 282 10^3/uL (130-400); WHITE BLOOD COUNT 11.4 10^3/uL (4.3-11.0)
[2018-08-10 16:43] LABS: INR 0.9 (0.8-1.4)
[2018-08-10 16:52] LABS: ALANINE AMINOTRANSFERASE 78 U/L (0-55); ALBUMIN 4.3 GM/DL (3.2-4.5); ALKALINE PHOSPHATASE 120 U/L (40-136); BUN/CREATININE RATIO 17; CALCIUM 9.7 MG/DL (8.5-10.1); CARBON DIOXIDE 20 MMOL/L (21-32); CHLORIDE 107 MMOL/L (98-107); CREATININE SERUM 1.05 MG/DL (0.60-1.30); GFR ESTIMATED 52; GLUCOSE 127 MG/DL (70-105); MAGNESIUM 2.1 MG/DL (1.8-2.4); POTASSIUM 3.8 MMOL/L (3.6-5.0); SODIUM 142 MMOL/L (135-145); TOTAL PROTEIN 7.3 GM/DL (6.4-8.2)
--- NOTE | 2018-08-10 16:52 | ED GI ---
General Chief Complaint: Chest Pain Stated Complaint: CHEST PAIN RADIATING TO BACK Nursing Triage Note: ARRIVED VIA AMB TO FAST TRACK. COMPLAINS OF CHEST PAIN STARTING 2 HR ROUND BONER. Sepsis Screen: No Definite Risk Source of Information: Patient Exam Limitations: No Limitations History of Present Illness Date Seen by Provider: August 10, 2018 Time Seen by Provider: 16:00 Initial Comments 73-year-old female who presents to the emergency room with complaints of right upper quadrant abdominal pain that radiates to her mid chest/ back starting 2 hours prior to arrival after eating a pork sandwich for lunch. She reports that she has had some nausea and vomiting. Denies shortness of breath, lightheadedness, dizziness. Reports she sees Dr. Jean Baptiste for PCP. Timing/Duration: 1-3 Hours Location: RUQ Radiation: Back, Chest Associated Symptoms: Nausea/Vomiting; No Shortness of Air, No Weakness Allergies and Home Medications Allergies Coded Allergies: Sulfa (Sulfonamide Antibiotics) (Verified Allergy, Unknown, 07/11/18) Home Medications Baclofen 10 Mg Tablet, 10 MG PO DAILY, (Reported) Estradiol 0.5 Mg Tablet, 0.5 MG PO HS, (Reported) Lovastatin 40 Mg Tablet, 40 MG PO HS, (Reported) Pantoprazole Sodium 40 Mg Tablet.dr, 40 MG PO DAILY Prescribed by: LAST FISHER on 07/13/18 1216 Ubidecarenone/Vitamin E 1 Each Capsule, 100 MG PO DAILY, (Reported) Patient Home Medication List Home Medication List Reviewed: Yes Review of Systems Review of Systems Constitutional: see HPI; No chills, No fever Cardiovascular: See HPI, Chest Pain Gastrointestinal: See HPI, Abdominal Pain, Nausea, Vomiting Musculoskeletal: see HPI, back pain All Other Systems Reviewed Negative Unless Noted: Yes Past Lvwkcvm-Mjsawz-Qzrrec Hx Past Med/Social Hx: Reviewed Nursing Past Med/Soc Hx Patient Social History Alcohol Use: Denies Use Recreational Drug Use: No 2nd Hand Smoke Exposure: Yes Recent Foreign Travel: No Contact w/Someone Who Travel: No Recent Infectious Disease Expo: No Recent Hopitalizations: No Immunizations Up To Date Tetanus Booster (TDap): More than 5yrs PED Vaccines UTD: Yes Date of Influenza Vaccine: Dec 27, 2017 Seasonal Allergies Seasonal Allergies: Yes Past Medical History Surgeries: Yes (BACK, ROTATOR CUFF) Section, Hysterectomy Respiratory: No (HAS NOT HAD ANY PROBLEMS FOR A WHILE) Asthma Cardiac: Yes High Cholesterol Neurological: Yes Neuropathy Reproductive Disorders: No IC DESIGN ENGINEER History: Hysterectomy Sexually Transmitted Disease: No HIV/AIDS: No Genitourinary: No Gastrointestinal: No (EPIGASTRIC PAIN, NAUSEA) Gastroesophageal Reflux Musculoskeletal: Yes ( ARTHRITIS-HANDS) Arthritis, Scoliosis Endocrine: No HEENT: Yes (READING GLASSES) Loss of Vision: Bilateral Hearing Impairment: Denies Cancer: No Psychosocial: No Integumentary: No Blood Disorders: No Adverse Reaction/Blood Tranf: No (N/A) Family Medical History Reviewed Nursing Family Hx Physical Exam Vital Signs Vital Signs - First Documented 08/10/18 15:59 Temp 98.0 Pulse 63 Resp 16 B/P (MAP) 175/74 (107) Pulse Ox 100 O2 Delivery Room Air Capillary Refill : Less Than 3 Seconds Height/Weight/BMI Height: 5'2.00" Weight: 125lbs. 0.0oz. 56.417302wq; 22.1 BMI Method:Stated General Appearance: WD/WN, no apparent distress Respiratory: chest non-tender, lungs clear, normal breath sounds, no respiratory distress, no accessory muscle use Cardiovascular: normal peripheral pulses, regular rate, rhythm, no edema, no gallop, no JVD, no murmur Gastrointestinal: normal bowel sounds, non tender, soft, no organomegaly, no pulsatile mass Extremities: normal capillary refill Neurologic/Psychiatric: alert, normal mood/affect, oriented x 3 Skin: normal color, warm/dry Progress/Results/Core Measures Results/Orders Lab Results Laboratory Tests Test 08/10/18 16:24 Range/Units White Blood Count 11.4 H 4.3-11.0 10^3/uL Red Blood Count 4.27 L 4.35-5.85 10^6/uL Hemoglobin 12.9 11.5-16.0 G/DL Hematocrit 38 35-52 % Mean Corpuscular Volume 90 80-99 FL Mean Corpuscular Hemoglobin 30 25-34 PG Mean Corpuscular Hemoglobin Concent 34 32-36 G/DL Red Cell Distribution Width 13.0 10.0-14.5 % Platelet Count 282 130-400 10^3/uL Mean Platelet Volume 10.1 7.4-10.4 FL Neutrophils (%) (Auto) 80 H 42-75 % Lymphocytes (%) (Auto) 14 12-44 % Monocytes (%) (Auto) 4 0-12 % Eosinophils (%) (Auto) 2 0-10 % Basophils (%) (Auto) 0 0-10 % Neutrophils # (Auto) 9.1 H 1.8-7.8 X 10^3 Lymphocytes # (Auto) 1.6 1.0-4.0 X 10^3 Monocytes # (Auto) 0.5 0.0-1.0 X 10^3 Eosinophils # (Auto) 0.2 0.0-0.3 10^3/uL Basophils # (Auto) 0.0 0.0-0.1 10^3/uL Prothrombin Time 13.0 12.2-14.7 SEC INR Comment 0.9 0.8-1.4 Activated Partial Thromboplast Time 27 24-35 SEC Sodium Level 142 135-145 MMOL/L Potassium Level 3.8 3.6-5.0 MMOL/L Chloride Level 107 98-107 MMOL/L Carbon Dioxide Level 20 L 21-32 MMOL/L Anion Gap 15 H 5-14 MMOL/L Blood Urea Nitrogen 18 7-18 MG/DL Creatinine 1.05 0.60-1.30 MG/DL Estimat Glomerular Filtration Rate 52 BUN/Creatinine Ratio 17 Glucose Level 127 H 70-105 MG/DL Calcium Level 9.7 8.5-10.1 MG/DL Corrected Calcium 9.5 8.5-10.1 MG/DL Magnesium Level 2.1 1.8-2.4 MG/DL Total Bilirubin 1.0 0.1-1.0 MG/DL Aspartate Amino Transf (AST/SGOT) 136 H 5-34 U/L Alanine Aminotransferase (ALT/SGPT) 78 H 0-55 U/L Alkaline Phosphatase 120 40-136 U/L Myoglobin 46.3 10.0-92.0 NG/ML Troponin I < 0.028 <0.028 NG/ML Total Protein 7.3 6.4-8.2 GM/DL Albumin 4.3 3.2-4.5 GM/DL My Orders Orders - YUMIKO INIGUEZ Cbc With Automated Diff (08/10/18 16:02) Magnesium (08/10/18 16:02) Chest 1 View, Ap/Pa Only (08/10/18 16:02) Ekg Tracing (08/10/18 16:02) Cardiac Profile 1 (08/10/18 16:02) Comprehensive Metabolic Panel (08/10/18 16:02) Myoglobin Serum (08/10/18 16:02) Protime With Inr (08/10/18 16:02) Partial Thromboplastin Time (08/10/18 16:02) O2 (08/10/18 16:02) Monitor-Rhythm Ecg Trace Only (08/10/18 16:02) Lipid Panel (08/11/18 06:00) Ed Iv/Invasive Line Start (08/10/18 16:02) Fentanyl Injection (Sublimaze Injection (08/10/18 16:15) Us Gallbladder 11928 (08/10/18 17:29) Fentanyl Injection (Sublimaze Injection (08/10/18 18:45) Medications Given in ED Current Medications Medications Dose Ordered Sig/Terrie Route Start Time Stop Time Status Last Admin Dose Admin Fentanyl Citrate 50 mcg ONCE ONCE IVP 08/10/18 16:15 08/10/18 16:16 DC 08/10/18 16:24 50 MCG Vital Signs/I&O 08/10/18 15:59 Temp 98.0 Pulse 63 Resp 16 B/P (MAP) 175/74 (107) Pulse Ox 100 O2 Delivery Room Air Blood Pressure Mean: 107 Progress Progress Note : Time: 17:50 Progress Note I have seen and evaluated the patient. Her pain has improved with fentanyl. 1830: I have informed the patient of her imaging studies and discussed the case with Dr. FISHER and he would like the patient admitted to the hospital for plans to have her gallbladder removed tomorrow. She agrees with plan of care, plans for admission. Initial ECG Impression Date: August 10, 2018 Initial ECG Impression Time: 16:05 Initial ECG Rate: 64 Initial ECG Rhythm: Normal Sinus Initial ECG Intervals: Normal Initial ECG Impression: Normal Diagnostic Imaging Diagonstic Imaging: Xray, Ultrasound Comments NAME: MARLEE WALKER Ruben TALAVERA REC#: [id number] PT STATUS: ADM IN : 1945 PHYSICIAN: YUMIKO INIGUEZ ADMIT DATE: 08/10/18/ Signed Date of Exam: 08/10/18 US GALLBLADDER [id number] CLINICAL INDICATION: Patient with abdominal pain. Patient last ate at 12:00 p.m. EXAM: Right upper quadrant ultrasound. COMPARISON: Right upper quadrant ultrasound dated 08/24/2017. FINDINGS: Limited evaluation of the intra-abdominal contents due to patient body habitus and overlying bowel gas. Bowel gas obscures portions of the pancreatic tail. Otherwise, the remainder of the visualized portion of the pancreas is unremarkable. The liver has normal echogenicity and echotexture. The liver surface is smooth. The liver measures 15 cm in craniocaudal dimension. There is no intrahepatic ductal dilation. The common bile duct is obscured and cannot be evaluated. The gallbladder is fluid distended. There is gallbladder wall thickening of 3.8 mm. There are no gallbladder stones or sludge seen. There is no sonographic Henderson's sign. The right kidney is unremarkable with no hydronephrosis or mass seen. The right kidney measures 8.8 cm in craniocaudal dimension. Visualized portions of the abdominal aorta and IVC show no gross abnormality. There is no abdominal ascites. IMPRESSION: 1: Nonspecific wall thickening involving the gallbladder. There are no stones or sludge seen. There is no sonographic Henderson's sign. 2: Limited exam with bowel gas obscuring portions of this exam. There is no evidence of acute abnormality involving this right upper quadrant ultrasound exam. Dictated by: Dictated on workstation # [id number] Dict: 08/10/181832 Trans: 08/10/182019 Interpreted by: KARIME WINTER MD Electronically signed by: KARIME WINTER MD 08/10/182019 Reviewed: Reviewed by Me Departure Communication (Admissions) Time/Spoke to Admitting Phy: 18:30 Dr. FISHER recommends admitting to the hospital for plans for cholecystectomy tomorrow. IV fluids, pain medication, Cipro Flagyl combination. Nothing by mouth status at midnight Impression Primary Impression: Cholecystitis Disposition: ADMITTED INPATIENT Condition: Stable/Unchanged Admissions Decision to Admit Reason: Admit from ER (General) Decision to Admit/Date: August 10, 2018 Time/Decision to Admit Time: 18:39 Departure-Patient Inst. Referrals: JANELLE JEAN BAPTISTE DO (PCP/Family) Primary Care Physician YUMIKO INIGUEZ August 10, 2018 16:52
--- NOTE | 2018-08-10 17:00 | NUR ---
TO ROOM REPORTS THAT PAIN BETTER. INFORMED THAT SONO COMING FROM HOME. AND WOULD BE HERE LACIE.
--- NOTE | 2018-08-10 17:07 | Diagnostic Imaging Report ---
CLINICAL INDICATION: Patient with chest pain. EXAM: Portable chest x-ray, upright view. COMPARISONS: Chest x-ray dated 05/25/2014. CT scan of the chest without contrast dated 10/11/2017. FINDINGS: There is mild bibasilar atelectasis. Otherwise, lungs are clear. There is no pleural effusion or pneumothorax. There is slightly increased prominence of the right cardiophrenic angle region, which correlates to prominent pericardial fat seen on the comparison chest CT scan dated 10/11/2017. There is no pleural effusion or pneumothorax. Cardiac silhouette and pulmonary vasculature are within normal limits. Again seen posterior fusion hardware. IMPRESSION: 1: There is mild bibasilar atelectasis. Otherwise, there is no radiographic evidence of acute cardiopulmonary process. 2: Stable prominent pericardial fat. Dictated by: Dictated on workstation # [id number]
[2018-08-10] MEDS: ONDANSETRON 4 MG/2 ML (SDV) Z0FRAN ONE ×2 (18:43→18:58)
[2018-08-10] MEDS ORDERED: ONDANSETRON 4 MG/2 ML (SDV) Z0FRAN IVP ONE (18:45)
--- NOTE | 2018-08-10 18:48 | Diagnostic Imaging Report ---
CLINICAL INDICATION: Patient with abdominal pain. Patient last ate at 12:00 p.m. EXAM: Right upper quadrant ultrasound. COMPARISON: Right upper quadrant ultrasound dated 08/24/2017. FINDINGS: Limited evaluation of the intra-abdominal contents due to patient body habitus and overlying bowel gas. Bowel gas obscures portions of the pancreatic tail. Otherwise, the remainder of the visualized portion of the pancreas is unremarkable. The liver has normal echogenicity and echotexture. The liver surface is smooth. The liver measures 15 cm in craniocaudal dimension. There is no intrahepatic ductal dilation. The common bile duct is obscured and cannot be evaluated. The gallbladder is fluid distended. There is gallbladder wall thickening of 3.8 mm. There are no gallbladder stones or sludge seen. There is no sonographic Henderson's sign. The right kidney is unremarkable with no hydronephrosis or mass seen. The right kidney measures 8.8 cm in craniocaudal dimension. Visualized portions of the abdominal aorta and IVC show no gross abnormality. There is no abdominal ascites. IMPRESSION: 1: Nonspecific wall thickening involving the gallbladder. There are no stones or sludge seen. There is no sonographic Henderson's sign. 2: Limited exam with bowel gas obscuring portions of this exam. There is no evidence of acute abnormality involving this right upper quadrant ultrasound exam. Dictated by: Dictated on workstation # [id number]
--- NOTE | 2018-08-10 19:01 | Progress Note-Pre Operative ---
Pre-Operative Progress Note H&P Reviewed The H&P was reviewed, patient examined and no changes noted. Date Seen by Provider: August 10, 2018 Time Seen by Provider: 19:00 Date H&P Reviewed: August 10, 2018 Time H&P Reviewed: 19:00 Pre-Operative Diagnosis: sx acute acalculous cholecystitis LAST FISHER MD August 10, 2018 19:01
--- NOTE | 2018-08-10 19:10 | NUR ---
This RN received report from Beth Lin RN at this time.
--- OUTSIDE RECORDS SUMMARY | 2018-08-10 19:16 | XMS REPORT | Clinical Summary ---
Author Author [facility] Organization [facility] Address Unknown Phone Unavailable Care Team Providers Care Fitness Technician Name Role Phone Self, Referral PCP Unavailable Source Comments Some departments are not documenting in the electronic medical record. If you d o not see the information that you expected, contact Release of Information in [facility] [place] Information Management department at [phone] for further assistan ce in locating additional records.[facility] Allergies Not on File Medications Not on file Active Problems Not on file Social History Date Tobacco Use Types Packs/Day Years Used Never Assessed Sex Assigned at Date Recorded Not on file Industry Job Start Date Occupation Not on file Not on file Not on file Travel End Travel History Travel Start No recent travel history available. Last Filed Vital Signs Not on file Plan of Treatment Health Maintenance Due Date Last Done Comments HEPATITIS C SCREENING 1945 PHYSICAL (COMPREHENSIVE) 1953 EXAM DTAP/TDAP VACCINES (1 - 1964 Tdap) BREAST CANCER SCREENING 1986 COLORECTAL CANCER 1996 SCREENING SHINGLES RECOMBINANT 1996 VACCINE (1 of 2) OSTEOPOROSIS 2011 SCREENING/MONITORING PNEUMONIA (PCV13/PPSV23) 2011 VACCINES (1 of 2 - PCV13) INFLUENZA VACCINE 12/20/2018 Results Not on filefrom Last 3 Months Insurance Type Payer Benefit Subscriber ID Effective Phone Address Plan / Dates Group Medicare MEDICARE MEDICARE xxxxxxxxxx 2011- PART A AND Present B Medicare BCBS YESSY BCBS xxxxxxxxxxxx 2012-P SUPPLEMENT resent Advance Directives Patient has advance care planning documents on file. For more information, hanna dixon contact: [address] [address]
--- OUTSIDE RECORDS SUMMARY | 2018-08-10 19:17 | XMS REPORT | Continuity of Care Document ---
Author Organization Unknown Address Unknown Allergies Active Description Code Type Severity Reaction Onset Reported/Identified Relationship to Patient Clinical Status Yes No Known Drug Allergies [id number] Drug Allergy Unknown N/A 12/30/2016 Yes Sulfa (Sulfonamide Antibiotics) [id number] Drug Allergy Unknown N/A 07/11/2018 Medications There is no data. Problems Date Dx Coded Attending Type Code Diagnosis Diagnosed By 10/16/2011 Ot 211.3 BENIGN NEOPLASM LG BOWEL 10/16/2011 Ot 562.10 DIVERTICULOSIS COLON (W/O MENT OF HEMORR 10/16/2011 Ot V16.0 FAMILY HX-GI MALIGNANCY 10/16/2011 Ot V76.51 SCREEN MAL NEOP- COLON 12/02/2012 JANELLE BIRMINGHAM DO Ot 724.4 LUMBOSACRAL [...] Ot V76.12 12/26/2015 Ot V76.12 OT SCREEN MAMMO- MALIGN NEOPLASM OF GRADY 12/26/2015 Ot V72.84 EXAM PRE-OPERATIVE NOS 12/26/2015 Ot 715.34 LOC OSTEOARTH NOS-HAND 12/26/2015 Ot 793.82 INCONCLUSIVE MAMMOGRAM 12/26/2015 Ot V76.12 OTH SCREEN MAMMO- MALIGN NEOPLASM OF GRADY 12/26/2015 JANELLE BIRMINGHAM DO [...] BREATH 12/26/2015 CRISTAL FERNANDES MD Ot V72.81 [id number] CARDIOVASCULAR 12/26/2015 CRISTAL FERNANDES MD Ot 733.90 [...] MD Ot I25.10 ATHSCL HEART DISEASE OF [place] CORONARY 07/24/2016 DAYLIN TIM MD Ot K57.30 DVRTCLOS OF LG INT W/O PERFORATION OR AB 07/24/2016 DAYLIN TIM MD Ot Z12.11 ENCOUNTER FOR SCREENING FOR MALIGNANT NE 07/24/2016 DAYLIN TIM MD Ot Z79.899 OTHER USP (CURRENT) DRUG THERAPY 07/24/2016 DAYLIN TIM MD [...] MD Ot I25.10 ATHSCL HEART DISEASE OF [place] CORONARY 07/29/2016 DAYLIN TIM MD Ot K57.30 DVRTCLOS OF LG INT W/O PERFORATION OR AB 07/29/2016 DAYLIN TIM MD Ot Z12.11 ENCOUNTER FOR SCREENING FOR MALIGNANT NE 07/29/2016 DAYLIN TIM MD Ot 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 07/29/2016 MEETA HINTON, DAYLIN [...] OTHER PREPROCEDURAL EXAMIN 12/30/2016 Ot V72.84 EXAM PRE-OPERATIVE NOS 12/30/2016 Ot 715.34 LOC OSTEOARTH NOS-HAND 12/30/2016 Ot 793.82 INCONCLUSIVE MAMMOGRAM 12/30/2016 Ot V76.12 OT SCREEN MAMMO- MALIGN NEOPLASM OF GRADY 12/30/2016 JANELLE BIRMINGHAM DO [...] BREATH 12/30/2016 CRISTAL FERNANDES MD Ot V72.81 [id number]-[id number] CARDIOVASCULAR 12/30/2016 CRISTAL FERNANDES MD Ot 733.90 [...] 01/01/2017 ISHMAEL GUAN MD Ot Z79.899 OTHER USP (CURRENT) DRUG THERAPY 01/04/2017 ISHMAEL GUAN MD, Ot G62.9 POLYNEUROPATHY, UNSPECIFIED 01/04/2017 ISHMAEL GUAN MD Ot M19.91 PRIMARY OSTEOARTHRITIS, UNSPECIFIED SITE 01/04/2017 ISHMAEL GUAN MD, Ot M41.9 SCOLIOSIS, UNSPECIFIED 01/04/2017 ISHMAEL GUAN MD, Ot T84.84XA PAIN DUE TO INTERNAL ORTHOPEDIC PROSTH D 01/04/2017 ISHMAEL GUAN MD, Ot 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 01/07/2017 ISHMAEL GUAN MD, Ot G62.9 POLYNEUROPATHY, UNSPECIFIED 01/07/2017 ISHMAEL GUAN MD, Ot M19.91 PRIMARY OSTEOARTHRITIS, UNSPECIFIED SITE 01/07/2017 ISHMAEL GUAN MD, Ot M41.9 SCOLIOSIS, UNSPECIFIED 01/07/2017 ISHMAEL GUAN MD, Ot T84.84XA PAIN DUE TO INTERNAL ORTHOPEDIC PROSTH D 01/07/2017 ISHMAEL GUAN MD, Ot 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 07/19/2017 Ot 715.34 LOC OSTEOARTH NOS-HAND 07/19/2017 Ot 793.82 INCONCLUSIVE MAMMOGRAM 07/19/2017 Ot V76.12 OT SCREEN MAMMO- MALIGN NEOPLASM OF GRADY 07/19/2017 JANELLE BIRMINGHAM DO [...] DO Ot 737.30 IDIOPATHIC SCOLIOSIS 07/19/2017 DOM HINTNO, CRISTAL Preston Ot 733.90 BONE CARTILAGE DIS NOS 07/19/2017 DOM HINTON, CRISTAL Preston Ot 786.05 SHORTNESS OF BREATH 07/19/2017 DOM HINTNO, CRISTAL Preston Ot V72.81 RXVO-VAJ-SBEQAAEWY CARDIOVASCULAR 07/19/2017 CRISTAL FERNANDES MD Ot 733.90 [...] DISEASES OF BILIARY TRAC 09/08/2017 CATALINA GARCIA HARVEST WORKER Ot N64.4 MASTODYNIA 09/15/2017 JANELLE BIRMINGHAM DO Ot K82.8 OTHER SPECIFIED DISEASES OF GALLBLADDER 09/15/2017 JANELEL BIRMINGHAM DO Ot R10.11 RIGHT UPPER QUADRANT PAIN 09/21/2017 JANELLE BIRMINGHAM DO Ot K82.8 OTHER SPECIFIED DISEASES OF GALLBLADDER 09/21/2017 JANELLE BIRMINGHAM DO Ot R10.11 RIGHT UPPER QUADRANT PAIN 09/23/2017 JANELLE BIRMINGHAM DO Ot K83.8 OTHER SPECIFIED DISEASES OF BILIARY TRAC 09/30/2017 JANELLE BIRMINGHAM DO Ot K83.8 OTHER SPECIFIED DISEASES OF BILIARY TRAC 10/11/2017 Ot 793.82 INCONCLUSIVE MAMMOGRAM 10/11/2017 Ot V76.12 OT SCREEN MAMMO- MALIGN NEOPLASM OF GRADY 10/11/2017 JANELLE BIRMINGHAM DO [...] BREATH 10/11/2017 CRISTAL FERNANDES MD Ot V72.81 YETT-TLI-ROULYGWEQ CARDIOVASCULAR 10/11/2017 CRISTAL FERNANDES MD Ot 733.90 BONE CARTILAGE DIS NOS 10/11/2017 NOEL HURD MD, Ot 722.52 LUMB/LUMBOSAC DISC DEGEN 10/11/2017 NEOL HURD MD, Ot 737.30 IDIOPATHIC SCOLIOSIS 10/11/2017 VANNESSA HINTON, NOEL Flowers Ot V58.69 OT MED,LT,CURRENT USE 10/11/2017 AMELIA HINTON, VINCE Roach Ot 729.81 SWELLING OF LIMB 10/11/2017 JANELLE BIRMINGHAM DO, Ot V76.12 OT SCREEN MAMMO-MALIGN NEOPLASM OF GRADY 10/11/2017 JANELEL BIRMINGHAM DO, Ot Z12.31 ENCNTR SCREEN MAMMOGRAM [...] DO Ot I25.10 ATHSCL HEART DISEASE OF [place] CORONARY 10/11/2017 JANELLE BIRMINGHAM DO Ot I77.810 THORACIC AORTIC ECTASIA 10/11/2017 JANELLE BIRMINGHAM DO Ot I25.10 ATHSCL HEART DISEASE OF [place] CORONARY 10/11/2017 JANELLE BIRMINGHAM DO, Ot I77.810 THORACIC AORTIC ECTASIA 06/29/2018 JANELLE BIRMINGHAM DO Ot I77.819 AORTIC ECTASIA, UNSPECIFIED SITE 06/29/2018 JANELLE BIRMINGHAM DO Ot I77.819 AORTIC ECTASIA, UNSPECIFIED SITE 07/01/2018 JANELLE BIRMINGHAM DO, Ot I77.819 AORTIC ECTASIA, UNSPECIFIED SITE 07/11/2018 LAST FISHER MD Ot Z01.818 ENCOUNTER FOR OTHER PREPROCEDURAL EXAMIN 07/12/2018 LAST FISHER MD, Ot Z01.818 ENCOUNTER FOR OTHER PREPROCEDURAL EXAMIN 07/13/2018 LAST FISHER MD Ot E78.00 PURE HYPERCHOLESTEROLEMIA, UNSPECIFIED 07/13/2018 LAST FISHER MD Ot G62.9 POLYNEUROPATHY, UNSPECIFIED 07/13/2018 LAST FISHER MD Ot K21.0 GASTRO-ESOPHAGEAL REFLUX DISEASE WITH ES 07/13/2018 LAST FISHER MD Ot K29.50 UNSPECIFIED CHRONIC GASTRITIS WITHOUT BL 07/13/2018 LAST FISHER MD Ot K29.70 GASTRITIS, UNSPECIFIED, WITHOUT BLEEDING 07/13/2018 LAST FISHER MD Ot K44.9 DIAPHRAGMATIC HERNIA WITHOUT OBSTRUCTION 07/13/2018 LAST FISHER MD Ot M41.9 SCOLIOSIS, UNSPECIFIED 07/13/2018 LAST FISHER MD Ot 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 07/13/2018 LAST FISHER MD Ot Z88.2 ALLERGY STATUS TO SULFONAMIDES STATUS 07/17/2018 LAST FISHER MD Ot Z01.818 ENCOUNTER FOR OTHER PREPROCEDURAL EXAMIN 07/19/2018 LAST FISHER MD Ot E78.00 PURE HYPERCHOLESTEROLEMIA, UNSPECIFIED 07/19/2018 LAST FISHER MD Ot G62.9 POLYNEUROPATHY, UNSPECIFIED 07/19/2018 LAST FISHER MD Ot K21.0 GASTRO-ESOPHAGEAL REFLUX DISEASE WITH ES 07/19/2018 LAST FISHER MD Ot K29.50 UNSPECIFIED CHRONIC GASTRITIS WITHOUT BL 07/19/2018 LAST FISHER MD Ot K44.9 DIAPHRAGMATIC HERNIA WITHOUT OBSTRUCTION 07/19/2018 LAST FISHER MD Ot M41.9 SCOLIOSIS, UNSPECIFIED 07/19/2018 LAST FISHER MD Ot Z79.899 OTHER USP (CURRENT) DRUG THERAPY 07/19/2018 LAST FISHER MD Ot Z88.2 ALLERGY STATUS TO SULFONAMIDES STATUS 07/27/2018 JANELLE BIRMINGHAM DO Ot I77.819 AORTIC ECTASIA, UNSPECIFIED SITE Procedures There is no data. Results Test Result Range Methicillin resistant Staphylococcus aureus (MRSA) screening culture - 01/01/17 06:30 Methicillin resistant Staphylococcus aureus (MRSA) screening culture NEG NRG Complete blood count (CBC) with automated white blood cell (WBC) differential - 08/10/18 16:24 Blood leukocytes automated count (number/volume) 11.4 10*3/uL 4.3-11.0 Blood erythrocytes automated count (number/volume) 4.27 10*6/uL 4.35-5.85 Venous blood hemoglobin measurement (mass/volume) 12.9 g/dL 11.5-16.0 Blood hematocrit (volume fraction) 38 % 35-52 Automated erythrocyte mean corpuscular volume 90 [foz_us] 80-99 Automated erythrocyte mean corpuscular hemoglobin (mass per erythrocyte) 30 pg 25-34 Automated erythrocyte mean corpuscular hemoglobin concentration measurement (mass/volume) 34 g/dL 32-36 Automated erythrocyte distribution width ratio 13.0 % 10.0- 14.5 Automated blood platelet count (count/volume) 282 10*3/uL 130-400 Automated blood platelet mean volume measurement 10.1 [foz_us] 7.4-10.4 Automated blood neutrophils/100 leukocytes 80 % 42-75 Automated blood lymphocytes/100 leukocytes 14 % 12-44 Blood monocytes/100 leukocytes 4 % 0-12 Automated blood eosinophils/100 leukocytes 2 % 0-10 Automated blood basophils/100 leukocytes 0 % 0-10 Blood neutrophils automated count (number/volume) 9.1 10*3 1.8-7.8 Blood lymphocytes automated count (number/volume) 1.6 10*3 1.0-4.0 Blood monocytes automated count (number/volume) 0.5 10*3 0.0- 1.0 Automated eosinophil count 0.2 10*3/uL 0.0-0.3 Automated blood basophil count (count/volume) 0.0 10*3/uL 0.0-0.1 PT panel in platelet poor plasma by coagulation assay - 08/10/18 16:24 Prothrombin time (PT) in platelet poor plasma by coagulation assay 13.0 s 12.2-14.7 INR in platelet poor plasma or blood by coagulation assay 0.9 0.8-1.4 Activated partial thromboplastin time (aPTT) in platelet poor plasma bycoagulation assay - 08/10/18 16:24 Activated partial thromboplastin time (aPTT) in platelet poor plasma bycoagulation assay 27 s 24-35 Comprehensive metabolic panel - 08/10/18 16:24 Serum or plasma sodium measurement (moles/volume) 142 mmol/L 135-145 Serum or plasma potassium measurement (moles/volume) 3.8 mmol/L 3.6-5.0 Serum or plasma chloride measurement (moles/volume) 107 mmol/L 98-107 Carbon dioxide 20 mmol/L 21-32 Serum or plasma anion gap determination (moles/volume) 15 mmol/L 5-14 Serum or plasma urea nitrogen measurement (mass/volume) 18 mg/dL 7-18 Serum or plasma creatinine measurement (mass/volume) 1.05 mg/dL 0.60-1.30 Serum or plasma urea nitrogen/creatinine mass ratio 17 NRG Serum or plasma creatinine measurement with calculation of estimated glomerular filtration rate 52 NRG Serum or plasma glucose measurement (mass/volume) 127 mg/dL 70-105 Serum or plasma calcium measurement (mass/volume) 9.7 mg/dL 8.5-10.1 Serum or plasma total bilirubin measurement (mass/volume) 1.0 mg/dL 0.1-1.0 Serum or plasma alkaline phosphatase measurement (enzymatic activity/volume) 120 U/L 40-136 Serum or plasma aspartate aminotransferase measurement (enzymatic activity/volume) 136 U/L 5-34 Serum or plasma alanine aminotransferase measurement (enzymatic activity/volume) 78 U/L 0-55 Serum or plasma protein measurement (mass/volume) 7.3 g/dL 6.4-8.2 Serum or plasma albumin measurement (mass/volume) 4.3 g/dL 3.2-4.5 CALCIUM CORRECTED 9.5 mg/dL 8.5-10.1 Magnesium - 08/10/18 16:24 Magnesium 2.1 mg/dL 1.8-2.4 Serum or plasma troponin i.cardiac measurement (mass/volume) - 08/10/18 16:24 Serum or plasma troponin i.cardiac measurement (mass/volume) < ng/mL <0.028 Myoglobin, serum - 08/10/18 16:24 Myoglobin, serum 46.3 ng/mL 10.0-92.0 Encounters ACCT No. Visit Date/Time Discharge Status Pt. Type Provider Facility Loc./Unit Complaint [id number] 07/13/2018 09:54:00 07/13/2018 13:20:00 DIS Outpatient LAST FISHER MD [facility] ENDO EPIGASTRIC PAIN/NAUSEA [id number] 07/11/2018 05:53:00 07/11/2018 11:00:00 DIS Outpatient LAST FISHER MD [facility] PREOP EGD [id number] 06/30/2018 07:50:00 06/30/2018 23:59:59 CLS Outpatient JANELLE BIRMINGHAM DO [facility] RAD AORTIC ECTASIA, AORTIC CALCIFICATION [id number] 04/20/2018 10:45:00 04/20/2018 23:59:59 CLS Preadmit JANELLE BIRMINGHAM DO [facility] RAD MENOPAUSE [id number] 10/11/2017 08:37:00 10/11/2017 23:59:59 CLS Outpatient JANELLE BIRMINGHAM DO [facility] RAD THORACIC ECTASIA [id number] 08/31/2017 09:30:00 08/31/2017 23:59:59 CLS Outpatient JANELLE BIRMINGHAM DO [facility] RAD EPIGASTRIC PAIN [id number] 08/25/2017 13:40:00 08/25/2017 23:59:59 CLS Outpatient JANELLE BIRMINGHAM DO [facility] CARD RIGHT UPPER QUAD PAIN [id number] 08/24/2017 11:24:00 08/24/2017 23:59:59 CLS Outpatient JANELLE BIRMINGHAM DO [facility] RAD RUQ PAIN [id number] 08/09/2017 13:26:00 08/09/2017 23:59:59 CLS Outpatient CATALINA GARCIA [facility] RAD N64.4 PAIN OF LEFT BREAST [id number] 01/01/2017 06:14:00 01/01/2017 12:09:00 DIS Outpatient ISHMAEL GUAN MD [facility] SDC PAINFUL HARDWARE [id number] 12/30/2016 08:16:00 12/30/2016 08:30:00 DIS Outpatient ISHMAEL GUAN MD [facility] PREOP PAINFUL HARDWARE [id number] 11/02/2016 07:34:00 11/02/2016 23:59:59 CLS Outpatient ISHMAEL GUAN MD [facility] RAD BACK PAIN M54.5 [id number] 09/29/2016 14:24:00 09/29/2016 23:59:59 CLS Preadmit ISHMAEL GUAN MD [facility] RAD BACK PAIN [id number] 09/15/2016 16:15:00 09/15/2016 23:59:59 CLS Preadmit JANELLE BIRMINGHAM DO [facility] RAD M48.06 [id number] 09/15/2016 09:28:00 09/15/2016 23:59:59 CLS Outpatient JANELLE BIRMINGHAM DO [facility] RAD M48.06 [id number] 07/24/2016 06:59:00 07/24/2016 10:10:00 DIS Outpatient DAYLIN TIM MD [facility] ENDO SCREENING, FAMILY HISTORY OF COLON CANCER [id number] 07/21/2016 05:41:00 07/21/2016 11:56:00 DIS Outpatient DAYLIN TIM MD [facility] PREOP SCREENINNG, FAMILY HISTORY OF COLON CANCER [id number] 02/04/2016 09:19:00 02/04/2016 23:59:59 CLS Outpatient JANELLE BIRMINGHAM DO [facility] RAD SCREENING [id number] 12/26/2015 11:01:00 12/26/2015 23:59:59 CLS Outpatient JANELLE BIRMINGHAM DO [facility] RAD SCREENING [id number] 10/31/2014 16:01:00 11/23/2014 14:23:00 DIS Outpatient JANELLE BIRMINGHAM DO [facility] REHAB LYMPHEDEMA MASSAGE [id number] 11/20/2014 10:59:00 11/20/2014 23:59:59 CLS Outpatient JANELLE BIRMINGHAM DO [facility] RAD SCREENING [id number] 07/13/2014 07:35:00 07/13/2014 08:28:00 DIS Outpatient NOEL HURD MD [facility] CARD DDD [id number] 07/11/2014 15:20:00 07/11/2014 23:59:59 CLS Outpatient VINCE CISNEROS MD [facility] RAD LEFT LOWER EXTREMITY SWELLING SCREENING FOR DVT [id number] 06/11/2014 14:11:00 06/11/2014 23:59:59 CLS Outpatient NOEL HURD MD [facility] CARD DDD LUMBAR [id number] 04/10/2014 13:43:00 04/10/2014 23:59:59 CLS Outpatient CRISTAL FERNANDES MD [facility] RAD OSTEOPENIA [id number] 04/05/2014 09:25:00 04/05/2014 23:59:59 CLS Outpatient CRISTAL FERNANDES MD [facility] RAD OSTEOPENIA [id number] 04/04/2014 07:53:00 04/04/2014 23:59:59 CLS Outpatient CRISTAL FERNANDES MD [facility] CARD PREOP OP CLEARANCE [id number] 02/05/2014 13:21:00 02/05/2014 23:59:59 CLS Outpatient JANELLE BIRMINGHAM DO [facility] RAD SCOLIOSIS [id number] 08/18/2013 08:29:00 08/18/2013 23:59:59 CLS Outpatient JANELLE BIRMINGHAM DO [facility] RAD ROTO SCOLEOSIS W/RADICULOPATHY [id number] 08/10/2013 09:46:00 08/10/2013 23:59:59 CLS Outpatient JANELLE BIRMINGHAM DO [facility] RAD ROUTINE [id number] 02/23/2013 11:50:00 02/23/2013 23:59:59 CLS Outpatient JANELLE BIRMINGHAM DO [facility] RAD COUGH,WHEEZING [id number] 12/02/2012 11:01:00 12/02/2012 14:53:00 DIS Outpatient JANELLE BIRMINGHAM DO [facility] REHAB SCOLIOSIS WITH L RADICULOPATHY [id number] 09/05/2012 13:32:00 09/05/2012 23:59:59 CLS Outpatient BIRMINGHAM DO, JANELLE J [facility] RAD LUMBAGO [id number] 08/10/2018 18:35:00 ACT Inpatient LAST FISHER MD [facility] 4TH CHOLECYSTITIS [id number] 05/25/2014 14:40:00 Document Registration [id number] 04/22/2012 13:15:00 Document Registration [id number] 02/01/2012 13:55:00 Document Registration [id number] 10/16/2011 07:04:00 Document Registration [id number] 10/15/2011 08:08:00 Document Registration [id number] 03/02/2011 08:46:00 Document Registration
--- NOTE | 2018-08-10 19:22 | HISTORY AND PHYSICAL ---
DATE OF SERVICE: 08/10/2018 ATTENDING PRIMARY CARE PHYSICIAN: Dr. Jean Baptiste. HISTORY OF PRESENT ILLNESS: The patient is a 73-year-old female, who presented to the Emergency Department with pain in the right upper abdominal quadrant with radiation towards the back. Upon further questioning, she reports that she has had some minor episodes in the past; however, not as severe. Labs were drawn, which did show slight elevation of liver function enzymes and then an ultrasound followed, which did show gallbladder wall thickening. She does not report any fever nor chills at home. She states that she does have significant discomfort at this time. PAST MEDICAL HISTORY: Hypercholesterolemia, degenerative joint disease, gastroesophageal reflux disease, neuropathy. ALLERGIES: SULFA. MEDICATIONS: 1. Baclofen 10 mg daily. 2. Estradiol 0.5 mg daily. 3. Lovastatin 40 mg daily. 4. Protonix 40 mg daily. 5. Vitamin E daily. SOCIAL HISTORY: Negative smoke, negative alcohol. FAMILY HISTORY: Noncontributory. REVIEW OF SYSTEMS: Well-nourished female currently in no acute distress. She is not experiencing any shortness of breath or difficulty breathing. Intermittent episodes of nausea with associated right upper abdominal quadrant pain. No vomiting. No chest pain, palpitations or diaphoresis. No diarrhea, constipation, no red blood per rectum, no dark tarry stools. No fever or chills. No recent inadvertent weight loss. All other review of systems are negative. PHYSICAL EXAMINATION: VITAL SIGNS: Temperature 98.0, blood pressure 175/74, pulse 63, respirations 16, pulse ox 100% on room air. CHEST: Clear. Good breath sounds bilaterally. HEART: Regular, no murmurs. EXTREMITIES: No lower extremity edema. Negative Homans sign. HEENT: No scleral icterus. NECK: No cervical lymphadenopathy. ABDOMEN: Soft and nondistended. There is pain in the right upper abdominal quadrant upon deep palpation with no peritoneal signs. SKIN: Warm and dry. LABORATORY DATA: WBC 11.4, hemoglobin 12.9, hematocrit 38, platelets 282, BUN 18, creatinine 1.05, total bilirubin 1.0, AST 136, ALT 78, alkaline phosphatase 120. ASSESSMENT AND PLAN: A 73-year-old female with symptomatic acute calculous cholecystitis. The natural history of gallbladder disease was explained to the patient including recurrent episodes of pain, discomfort with increasing severity as well as frequency. She is in full understanding of the risks and benefits of surgery and would like to proceed with a laparoscopic cholecystectomy on this admission, which we will proceed with. We will also start her on antibiotics with ciprofloxacin and Flagyl and adequate pain control. Job ID: [id number] DocumentID: [id number] Dictated Date: 08/10/2018 19:00:17 Bilingual Medical Assistant Date: 08/10/2018 19:21:47 Dictated By: LAST FISHER MD
[2018-08-10 20:20] VITALS: BP 120/58
--- NOTE | 2018-08-10 20:20 | NUR ---
report received from Zehra in ED. MARLEE WALKER admitted to room 427-1, with an admitting diagnosis of Cholecystitis, on 08/10/18 from ED via wheelchair, accompanied by housekeeper supervisor. MARLEE WALKER introduced to surroundings, call light, bed controls, phone, TV, temperature control, lights, meal times, smoking policy, visitor policy, side rail policy, bathrooms and showers. Patient Rights given to patient in the handbook. MARLEE WALKER verbalizes understanding that [facility] is not responsible for the loss or damage to any personal effects or valuables that are kept in the patients posession during their hospitalization. MARLEE WALKER verbalizes understanding of Interdisciplinary Patient Education. Patient and/or family were informed about the Rapid Response Team and its purpose.
--- OUTSIDE RECORDS SUMMARY | 2018-08-10 20:22 | XMS REPORT | Clinical Summary ---
Author Author [facility] Organization [facility] Address Unknown Phone Unavailable Care Team Providers Care Oil Scout Name Role Phone Self, Referral PCP Unavailable Source Comments Some departments are not documenting in the electronic medical record. If you d o not see the information that you expected, contact Release of Information in [facility] [employer] Information Management department at [phone] for further assistan ce in locating additional records.[facility] Allergies Not on File Medications Not [...] file. For more information, hanna dixon contact: [address] [address]
--- OUTSIDE RECORDS SUMMARY | 2018-08-10 20:23 | XMS REPORT | Continuity of Care Document ---
Author Organization Unknown Address Unknown Allergies Active Description Code Type Severity Reaction Onset Reported/Identified Relationship to Patient Clinical Status Yes No Known Drug Allergies [id number] Drug Allergy Unknown N/A 12/30/2016 Yes Sulfa (Sulfonamide Antibiotics) [id number] Drug Allergy Unknown N/A 07/11/2018 Medications There [...] BREATH 12/26/2015 CRISTAL FERNANDES MD Ot V72.81 [id number] CARDIOVASCULAR 12/26/2015 CRISTAL FERNANDES MD Ot 733.90 [...] MD Ot I25.10 ATHSCL HEART DISEASE OF [place] CORONARY 07/24/2016 DAYLIN TIM MD Ot K57.30 DVRTCLOS OF LG INT W/O PERFORATION OR AB 07/24/2016 DAYLIN TIM MD Ot Z12.11 ENCOUNTER FOR SCREENING FOR MALIGNANT NE 07/24/2016 DAYLIN TIM MD Ot Z79.899 OTHER [facility] (CURRENT) DRUG THERAPY 07/24/2016 DAYLIN TIM MD [...] MD Ot I25.10 ATHSCL HEART DISEASE OF [place] CORONARY 07/29/2016 DAYLIN TIM MD Ot K57.30 DVRTCLOS OF LG INT W/O PERFORATION OR AB 07/29/2016 DAYLIN TIM MD Ot Z12.11 ENCOUNTER FOR SCREENING FOR MALIGNANT NE 07/29/2016 DAYLIN TIM MD Ot 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 07/29/2016 MEETA HINTON, DAYLIN [...] BREATH 12/30/2016 CRISTAL FERNANDES MD Ot V72.81 [id number] CARDIOVASCULAR 12/30/2016 CRISTAL FERNANDES MD Ot 733.90 [...] 01/01/2017 ISHMAEL GUAN MD Ot Z79.899 OTHER [facility] (CURRENT) DRUG THERAPY 01/04/2017 ISHMAEL GUAN MD, Ot G62.9 POLYNEUROPATHY, UNSPECIFIED 01/04/2017 ISHMAEL GUAN MD Ot M19.91 PRIMARY OSTEOARTHRITIS, UNSPECIFIED SITE 01/04/2017 ISHMAEL GUAN MD, Ot M41.9 SCOLIOSIS, UNSPECIFIED 01/04/2017 ISHMAEL GUAN MD, Ot T84.84XA PAIN DUE TO INTERNAL ORTHOPEDIC PROSTH D 01/04/2017 ISHMAEL GUAN MD, Ot 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 01/07/2017 ISHMAEL GUAN MD, Ot G62.9 POLYNEUROPATHY, UNSPECIFIED 01/07/2017 ISHMAEL GUAN MD, Ot M19.91 PRIMARY OSTEOARTHRITIS, UNSPECIFIED SITE 01/07/2017 ISHMAEL GUAN MD, Ot M41.9 SCOLIOSIS, UNSPECIFIED 01/07/2017 ISHMAEL GUAN MD, Ot T84.84XA PAIN DUE TO INTERNAL ORTHOPEDIC PROSTH D 01/07/2017 ISHMAEL GUAN MD, Ot 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 07/19/2017 Ot 715.34 LOC [...] 07/19/2017 DOM HINTON, CRISTAL Preston Ot V72.81 [id number] CARDIOVASCULAR 07/19/2017 CRISTAL FERNANDES MD Ot 733.90 [...] DISEASES OF BILIARY [place] 09/08/2017 CATALINA GARCIA BELLHOP SERVICE CAPTAIN Ot N64.4 MASTODYNIA 09/15/2017 JANELLE BIRMINGHAM DO [...] BREATH 10/11/2017 CRISTAL FERNANDES MD Ot V72.81 [id number] CARDIOVASCULAR 10/11/2017 CRISTAL FERNANDES MD Ot 733.90 [...] 10/11/2017 CATALINA GARCIA Ot N64.4 MASTODYNIA 10/11/2017 JAENLLE BIRMINGHAM DO Ot K82.8 OTHER SPECIFIED DISEASES OF GALLBLADDER 10/11/2017 JANELLE BIRMINGHAM DO Ot R10.11 RIGHT UPPER QUADRANT PAIN 10/11/2017 JANELLE BIRMINGHAM DO Ot K83.8 OTHER SPECIFIED DISEASES OF BILIARY TRAC 10/11/2017 JANELLE BIRMINGHAM DO Ot I25.10 ATHSCL HEART DISEASE OF [place] CORONARY 10/11/2017 JANELLE BIRMINGHAM DO Ot I77.810 THORACIC AORTIC ECTASIA 10/11/2017 JANELLE BIRMINGHAM DO Ot I25.10 ATHSCL HEART DISEASE OF [place] CORONARY 10/11/2017 JANELLE BIRMINGHAM DO, Ot I77.810 [...] 07/13/2018 LAST FISHER MD Ot 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 Type Provider Facility Loc./Unit Complaint [id number] 07/13/2018 09:54:00 07/13/2018 13:20:00 DIS Outpatient LAST FISHER MD [facility] ENDO EPIGASTRIC PAIN/NAUSEA [id number] 07/11/2018 05:53:00 07/11/2018 11:00:00 DIS Outpatient LAST FISHER MD [facility] PREOP EGD [id number] 06/30/2018 07:50:00 06/30/2018 23:59:59 CLS Outpatient JANELLE BIRMINGHAM DO [facility] RAD AORTIC ECTASIA, AORTIC CALCIFICATION [id number] 04/20/2018 10:45:00 04/20/2018 23:59:59 CLS Preadmit JANELLE BIRMINGHAM DO [facility] RAD MENOPAUSE [id number] 10/11/2017 08:37:00 10/11/2017 23:59:59 CLS Outpatient JANELLE BIRMINGHAM DO [facility] RAD THORACIC ECTASIA [id number] 08/31/2017 09:30:00 08/31/2017 23:59:59 CLS Outpatient JANELLE BIRMINGHAM DO [facility] RAD EPIGASTRIC PAIN [id number] 08/25/2017 13:40:00 08/25/2017 23:59:59 CLS Outpatient JANELLE BIRMINGHAM DO [facility] CARD RIGHT UPPER QUAD PAIN [id number] 08/24/2017 11:24:00 08/24/2017 23:59:59 CLS Outpatient JANELLE BIRMINGHAM DO [facility] RAD RUQ PAIN [id number] 08/09/2017 13:26:00 08/09/2017 23:59:59 CLS Outpatient CATALINA GARCIA [facility] RAD N64.4 PAIN OF LEFT BREAST [id number] 01/01/2017 06:14:00 01/01/2017 12:09:00 DIS Outpatient ISHMAEL GUAN MD [facility] SDC PAINFUL [place] [id number] 12/30/2016 08:16:00 12/30/2016 08:30:00 DIS Outpatient ISHMAEL GUAN MD [facility] PREOP PAINFUL [place] [id number] 11/02/2016 07:34:00 11/02/2016 23:59:59 CLS Outpatient ISHMAEL GUAN MD [facility] RAD BACK PAIN M54.5 [id number] 09/29/2016 14:24:00 09/29/2016 23:59:59 CLS Preadmit ISHMAEL GUAN MD [facility] RAD BACK PAIN [id number] 09/15/2016 16:15:00 09/15/2016 23:59:59 CLS Preadmit JANELLE BIRMINGHAM DO [facility] RAD M48.06 [id number] 09/15/2016 09:28:00 09/15/2016 23:59:59 CLS Outpatient JANELLE BIRMINGHAM DO [facility] RAD M48.06 [id number] 07/24/2016 06:59:00 07/24/2016 10:10:00 DIS Outpatient DAYLIN TIM MD [facility] ENDO SCREENING, FAMILY HISTORY OF COLON CANCER [id number] 07/21/2016 05:41:00 07/21/2016 11:56:00 DIS Outpatient DAYLIN TIM MD [facility] PREOP SCREENINNG, FAMILY HISTORY OF COLON CANCER [id number] 02/04/2016 09:19:00 02/04/2016 23:59:59 CLS Outpatient JANELLE BIRMINGHAM DO [facility] RAD SCREENING [id number] 12/26/2015 11:01:00 12/26/2015 23:59:59 CLS Outpatient JANELLE BIRMINGHAM DO [facility] RAD SCREENING [id number] 10/31/2014 16:01:00 11/23/2014 14:23:00 DIS Outpatient JANELLE BIRMINGHAM DO [facility] REHAB LYMPHEDEMA MASSAGE [id number] 11/20/2014 10:59:00 11/20/2014 23:59:59 CLS Outpatient JANELLE BIRMINGHAM DO [facility] RAD SCREENING [id number] 07/13/2014 07:35:00 07/13/2014 08:28:00 DIS Outpatient NOEL HURD MD [facility] CARD DDD [id number] 07/11/2014 15:20:00 07/11/2014 23:59:59 CLS Outpatient VINCE CISNEROS MD [facility] RAD LEFT LOWER EXTREMITY SWELLING SCREENING FOR DVT [id number] 06/11/2014 14:11:00 06/11/2014 23:59:59 CLS Outpatient NOEL HURD MD [facility] CARD DDD LUMBAR [id number] 04/10/2014 13:43:00 04/10/2014 23:59:59 CLS Outpatient CRISTAL FERNANDES MD [facility] RAD OSTEOPENIA [id number] 04/05/2014 09:25:00 04/05/2014 23:59:59 CLS Outpatient CRISTAL FERNANDES MD [facility] RAD OSTEOPENIA [id number] 04/04/2014 07:53:00 04/04/2014 23:59:59 CLS Outpatient CRISTAL FERNANDES MD [facility] CARD PREOP OP CLEARANCE [id number] 02/05/2014 13:21:00 02/05/2014 23:59:59 CLS Outpatient JANELLE BIRMINGHAM DO [facility] RAD SCOLIOSIS [id number] 08/18/2013 08:29:00 08/18/2013 23:59:59 CLS Outpatient JANELLE BIRMINGHAM DO [facility] RAD ROTO SCOLEOSIS W/RADICULOPATHY [id number] 08/10/2013 09:46:00 08/10/2013 23:59:59 CLS Outpatient JANELLE BIRMINGHAM DO [facility] RAD ROUTINE [id number] 02/23/2013 11:50:00 02/23/2013 23:59:59 CLS Outpatient JANELLE BIRMINGHAM DO [facility] RAD COUGH,WHEEZING [id number] 12/02/2012 11:01:00 12/02/2012 14:53:00 DIS Outpatient JANELLE BIRMINGHAM DO [facility] REHAB SCOLIOSIS WITH L RADICULOPATHY [id number] 09/05/2012 13:32:00 09/05/2012 23:59:59 CLS Outpatient BIRMINGHAM DO, JANELLE J [facility] RAD LUMBAGO [id number] 08/10/2018 18:35:00 ACT Inpatient LAST FISHER MD [facility] 4TH CHOLECYSTITIS [id number] 05/25/2014 14:40:00 Document Registration [id number] 04/22/2012 13:15:00 Document Registration [id number] 02/01/2012 13:55:00 Document Registration [id number] 10/16/2011 07:04:00 Document Registration [id number] 10/15/2011 08:08:00 Document Registration [id number] 03/02/2011 08:46:00 Document Registration
--- NOTE | 2018-08-10 20:54 | NUR ---
PT HAS TEMP OF 101.9. SPOKE WITH DR. FISHER AND INFORMED HIM OF PTS CONDITION. TELEPHONE ORDERS RECEIVED FOR TYLENOL 650MG Q6HRS PRN AND LORATAB 7.5/325MG Q4HRS PRN. WILL CARRY OUT ORDERS AND CONTINUE TO MONITOR PT.
[2018-08-10] MEDS ORDERED: NS IV 1000 ML 1,000 ML ONE (20:58)
[2018-08-10] MEDS ORDERED: ACETAMINOPHEN 325 MG TABLET PO PRN (21:00)
[2018-08-10] MEDS ORDERED: HYDROcodone/APAP 7.5 MG/325 MG (LORTAB, LORCET PLUS) TABLET PO PRN (21:00)
[2018-08-10] MEDS ORDERED: ONDANSETRON 4 MG/2 ML (SDV) Z0FRAN ONE (21:32)
[2018-08-10] MEDS: ONDANSETRON 4 MG/2 ML (SDV) Z0FRAN IV PRN (21:38)
[2018-08-10] MEDS ORDERED: fentaNYL INJECTION 100 MCG/2 ML AMP IV PRN (22:30)
[2018-08-10] MEDS: CIPROFLOXACIN 400 MG/D5W 200 ML (PRE-MIX) IV SCH (23:45)
[2018-08-10] MEDS: metroNIDAZOLE 500 MG/100 ML IVPB (PRE-MIX) IV SCH (23:45)
[2018-08-10] MEDS: NS IV 1000 ML 1,000 ML IV SCH (23:46)
[2018-08-10 23:49] VITALS: BP 111/58
[2018-08-11] VITALS (12 sets, daily range): BP systolic 93–150; BP diastolic 52–75
[2018-08-11 05:49] LABS: BASOPHILS % (AUTO) 0 % (0-10); EOSINOPHILS % (AUTO) 0 % (0-10); HEMATOCRIT 34 % (35-52); HEMOGLOBIN 11.4 G/DL (11.5-16.0); LYMPHOCYTES # (AUTO) 0.9 X 10^3 (1.0-4.0); LYMPHOCYTES % (AUTO) 6 % (12-44); MEAN CORPUSCULAR HEMOGLOBIN 30 PG (25-34); MEAN CORPUSCULAR HGB CONC 33 G/DL (32-36); MEAN CORPUSCULAR VOLUME 90 FL (80-99); MEAN PLATELET VOLUME 10.1 FL (7.4-10.4); MONOCYTES # (AUTO) 0.9 X 10^3 (0.0-1.0); MONOCYTES % (AUTO) 6 % (0-12); NEUTROPHILS # (AUTO) 13.6 X 10^3 (1.8-7.8); NEUTROPHILS % (AUTO) 88 % (42-75); PLATELET COUNT 257 10^3/uL (130-400); RED CELL DISTRIBUTION WIDTH 13.1 % (10.0-14.5); WHITE BLOOD COUNT 15.4 10^3/uL (4.3-11.0)
[2018-08-11 06:11] LABS: ALBUMIN 3.5 GM/DL (3.2-4.5); BILIRUBIN,TOTAL 1.7 MG/DL (0.1-1.0); CALCIUM 8.5 MG/DL (8.5-10.1); CREATININE SERUM 1.02 MG/DL (0.60-1.30); POTASSIUM 3.7 MMOL/L (3.6-5.0); TOTAL PROTEIN 5.8 GM/DL (6.4-8.2)
[2018-08-11 06:25] LABS: BAND NEUTROPHILS 6 %; BASOPHILS % (MANUAL) 0 %; EOSINOPHILS % (MANUAL) 1 %; LYMPHOCYTES % (MANUAL) 6 %; MONOCYTES % (MANUAL) 2 %; NEUTROPHILS % (MANUAL) 85 %; TOXIC GRANULATION/VACUOLAZATIO 1+
[2018-08-11] MEDS ORDERED: OMEP20TA33 PO (08:56)
[2018-08-11] MEDS ORDERED: PANT40TA3 PO (08:56)
--- NOTE | 2018-08-11 08:57 | NUR ---
SPOKE WITH THE PATIENT ABOUT HER MEDICATIONS. WE WENT OVER THE EXT MED HX AND SHE VERIFIED HOW SHE TAKES THEM. BACLOFEN WAS FILLED #270 FOR A 90 DAY SUPPLY HOWEVER SHE STATES SHE NEVER TAKES IT MORE THAN AT HS. SHE TAKES CO Q 10 DAILY OTC AND OMEPRAZOLE AT HS NEEDED.
[2018-08-11] MEDS: metroNIDAZOLE 500 MG/100 ML IVPB (PRE-MIX) IV SCH (09:48)
[2018-08-11] MEDS: CIPROFLOXACIN 400 MG/D5W 200 ML (PRE-MIX) IV SCH (10:48)
[2018-08-11] MEDS ORDERED: BUP/EPI 0.5% 1:200,000 (SENSORCAINE) 30 ML VIAL ONE (11:37)
--- NOTE | 2018-08-11 12:20 | NUR ---
DR FISHER HERE, CONSENT SIGNED, VERBALIZED UNDERSTANDING OF SURGERY, FAMILY HERE
--- NOTE | 2018-08-11 12:24 | NUR ---
TO SURGERY PER BED,
[2018-08-11] MEDS ORDERED: ONDANSETRON 4 MG/2 ML (SDV) Z0FRAN ONE (12:25)
[2018-08-11] MEDS ORDERED: proPOfol 200 MG/20 ML (DIPRIVAN) VIAL IV ONE (12:25)
[2018-08-11] MEDS ORDERED: ROCURONIUM 10 MG/ML 5 ML SYRINGE IV ONE (12:25)
[2018-08-11] MEDS ORDERED: LIDOCAINE PF 2% 5 ML (XYLOCAINE) VIAL ONE (12:25)
[2018-08-11] MEDS ORDERED: MIDAZOLAM 2 MG/2 ML (VERSED) VIAL ONE (12:26)
[2018-08-11] MEDS ORDERED: fentaNYL INJECTION 100 MCG/2 ML AMP ONE (12:26)
[2018-08-11] MEDS: NS IV 1000 ML 1,000 ML IV SCH (12:27)
[2018-08-11] MEDS ORDERED: SEVOFLURANE (ULTANE) 15 ML INHAL SOLN ONE ×4 (12:30→13:20)
[2018-08-11] MEDS ORDERED: DEXAMETHASONE 10 MG/ML (DECADRON) 1 ML VIAL ONE (12:30)
[2018-08-11] MEDS ORDERED: KETOROLAC 30 MG/ML VIAL ONE (12:30)
[2018-08-11] MEDS ORDERED: ceFAZolin INJECTION 1,000 MG ONE (12:52)
--- NOTE | 2018-08-11 13:26 | Progress Note-Post Operative ---
Post-Operative Progess Note Surgeon (s)/Construction Project Engineer (s) Surgeon LAST FISHER MD Construction Project Engineer: clayton romero TRANSFORMER BUILDER Pre-Operative Diagnosis sx acute acalculous cholecystitis Post-Operative Diagnosis sx acute calculous cholecystitis. Procedure & Operative Findings Date of Procedure 08/11/18 Procedure Performed/Findings laparoscopic cholecystectomy Anesthesia Type GET Estimated Blood Loss Estimated blood loss (mL): minimal Specimens/Packing Specimens Removed gallbladder LAST FISHER MD August 11, 2018 13:26
[2018-08-11] MEDS ORDERED: HYDR-34 PO (13:28)
--- NOTE | 2018-08-11 13:28 | Discharge Inst-Surgical ---
D/C Lap Instructions-NATALIA New, Converted, or Re-Newed RX: RX on Chart Follow Up Appt in 2 weeks Activity as tolerated No driving for 24 hours No driving while on pain medications Incentive Spirometry use every 2 hours while awake Regular Diet Symptoms to Report: Fever over 101 degree F, Nausea/Vomiting Infection Signs and Symptoms to report: Increased redness, Foul odor of wound, Increased drainage Bathing instructions: May shower Operative Area Clean/Dry; Keep incision clean/dry If any problems/questions: Contact your physician or go to Emergency Room LAST FISHER MD August 11, 2018 13:28
[2018-08-11] MEDS ORDERED: GLYCOPYRROLATE 0.2 MG/ML (ROBINUL) 2 ML VIAL ONE (13:35)
[2018-08-11] MEDS ORDERED: NEOSTIGMINE 1 MG/ML 5 ML SYRINGE ONE (13:35)
[2018-08-11] MEDS ORDERED: ONDANSETRON 4 MG/2 ML (SDV) Z0FRAN IVP PRN (14:00)
[2018-08-11] MEDS ORDERED: MEPERIDINE (DEMEROL) INJ 50 MG/ML IVP ONE (14:00)
[2018-08-11] MEDS ORDERED: fentaNYL INJECTION 100 MCG/2 ML AMP IVP ONE (14:00)
--- NOTE | 2018-08-11 14:45 | NUR ---
RECEIVED FROM RECOVERY, ALERT, LAP SITE TIMES 3, NO BLEEDING, ICE PACK TO ABD, DENIES PAIN AT THIS TIME, C/O NAUSEA, IV SITE WITHOUT REDNESS TO LEFT WRIST, CALL LIGHT WITHIN REACH, SCD'S ON, AT BEDSIDE
[2018-08-11] MEDS: ONDANSETRON 4 MG/2 ML (SDV) Z0FRAN IV PRN (15:00)
[2018-08-11] MEDS ORDERED: LACTATED RINGERS 1,000 ML IV PRN (15:43)
--- NOTE | 2018-08-11 17:30 | NUR ---
WALKED IN [place], BARRIE WELL, VOIDED MARINA COLOR URINE, ABD SOFT, LAPRASCOPIC SITES WITHOUT REDNESS OR BLEEDING.
--- NOTE | 2018-08-11 18:15 | NUR ---
DISCHARGE INSTRUCTIONS GIVEN, VERBALIZED UNDERSTANDING, INSTRUCTED ON IS EVERY 2 HOURS TO USE AT HOME
--- NOTE | 2018-08-11 18:20 | NUR ---
MARLEE WALKER demonstrates understanding of discharge instructions and accurately returns instructions upon questioning. Copy of Post-Discharge Instructions and Medication Discharge Instructions given to PATIENT. MARLEE WALKER is able to manage continuing needs after discharge. Patients belongings returned to PATIENT. Skin dry and intact; no breakdown noted. Patient discharged from [facility]- on 08/11/18 [id number] . MARLEE WALKER left floor via W/C, accompanied by STAFF AND .
--- NOTE | 2018-08-11 18:32 | OPERATIVE REPORT ---
DATE OF SERVICE: 08/11/2018 DATE OF ADMISSION: 08/10/2018. ATTENDING PRIMARY CARE PHYSICIAN: Dr. Jean Baptiste. PREOPERATIVE DIAGNOSIS: Acute acalculous cholecystitis. POSTOPERATIVE DIAGNOSES: Acute calculous cholecystitis, small to moderate size hiatal hernia. PROCEDURE: Laparoscopic cholecystectomy. SURGEON: Last Fisher MD DIRECTOR RISK: Arsen Powell APRN. ANESTHESIA: General endotracheal. ESTIMATED BLOOD LOSS: Minimal. FINDINGS: Inflamed gallbladder with thickened gallbladder wall. No purulence or gangrene. Multiple small gallstones. There was a hiatal hernia identified, which was small to moderate in size. This was identified on previous EGD as well. DISPOSITION: The patient tolerated the procedure well. INDICATIONS: The patient is a 73-year-old female, who presented to the Emergency Department with right upper abdominal quadrant pain with radiation towards the back. She has had these episodes for the past two years; however, not as severe. Labs were drawn, which did show a slight elevation of liver function, enzymes as well as an ultrasound which did show gallbladder wall thickening. She did not report any fever nor chills at home. She does report intermittent episodes of nausea; however, no vomiting. We had done an EGD on her before in the past, which did show a hiatal hernia, which was evaluated intraoperatively as well, which did show a mild to moderate size hiatal hernia. DESCRIPTION OF PROCEDURE: The patient was brought to the operating room, laid supine on the table. After adequate IV pain and sedative medications and general endotracheal intubation, the abdomen was prepped and draped in standard surgical fashion. A 0.5% Marcaine with epinephrine was then used to anesthetize the overlying skin to the left upper abdominal quadrant. A small transverse skin incision was made using a 15 blade. An 0 silk suture was applied to the medial aspect of the incision for retraction and a Veress needle was inserted with a low opening pressure of 0 mmHg and the abdomen was then insufflated to 15 mmHg pressure. The Veress needle was removed and a 5 mm Xcel trocar was placed, followed by a 5 mm 45-degree angle laparoscope visualizing the peritoneal cavity. A 4-quadrant abdominal exploration was performed. There was mild gallbladder wall inflammation as well as thickened gallbladder wall. There was no purulence or signs of gangrenous gallbladder. The patient was then placed in steep reverse Trendelenburg position and the liver retracted and there was a small to moderate size hiatal hernia, which appeared to reduce on its own. Under direct visualization, we then proceeded to place supraumbilical 10 mm port after the skin and peritoneal lining were anesthetized using 0.5% Marcaine with epinephrine and a transverse skin incision was made using 15 blade. In a similar manner, a right upper abdominal quadrant 5 mm port was placed. The fundus of the gallbladder was then retracted anteriorly and superiorly. The hepatoduodenal ligament was then opened using blunt dissection as well as electrocautery on the hook instrument. The entire critical view of safety was identified including the triangle of [place]ot as well as the cystic duct and artery as the only two structures going into the gallbladder as well as the cystic plate behind the proximal gallbladder. A timeout was then taken. The cystic duct and artery were then clipped proximally, distally and cut with EndoShears. The gallbladder was then dissected off the liver bed using cautery and the hook instrument with visualization of good hemostasis as well as no leaking ducts of [place]. The gallbladder was removed through the 10 mm port site using an EndoCatch bag. The 10 mm port site fascia and peritoneum were then closed under direct visualization using a Dandy-Annette device and 0 Vicryl suture. The abdomen was then desufflated and the remaining ports were removed. All skin incisions were closed using 4-0 Monocryl running subcuticular sutures. Wounds were then cleaned and covered with Dermabond. The gallbladder was examined on the back table and there was thickened gallbladder wall as well as multiple small gallstones. The patient tolerated the procedure well. We will start IV and oral pain medication as well as a clear liquid diet. When she is tolerating clears, has good pain control with oral pain medications and ambulating well, we will discharge her home. We will also recommend no heavy lifting or exertion for the next two weeks. A small to moderate size hiatal hernia was also identified, which was by laparoscopic evaluation as well as through EGD. We will see how she does status post cholecystectomy. If she does have recurrent issues with reflux or regurgitation despite maximum medical therapy, we will then proceed with further evaluation for hiatal hernia repair. If she continues to be symptomatic; however, before doing this, we will proceed with an esophageal manometry study to rule out a dysmotility disorder beforehand. Job ID: [id number] DocumentID: [id number] Dictated Date: 08/11/2018 13:49:50 Bag Patcher Date: 08/11/2018 18:32:05 Dictated By: LAST FISHER MD
== END 2018-08-11 18:20 | disposition home or self-care (01) | DRG 419 ==
LOC: EDUNIT# 15:59 → ER 16:00 → 4TH 18:35 → UNDOADMOB 18:35 → 4TH 18:35
PROVIDERS: ADMIT Surgery; ATTEND Surgery
PROC: 0FT44ZZ Resection of Gallbladder, Percutaneous Endoscopic Approach (ICD-10-PCS; principal; 2018-08-11 12:34)
DX: K80.00 Calculus of gallbladder with acute cholecystitis without obstruction (principal); K44.9 Diaphragmatic hernia without obstruction or gangrene; E78.00 Pure hypercholesterolemia, unspecified; K21.9 Gastro-esophageal reflux disease without esophagitis; G62.9 Polyneuropathy, unspecified; M19.91 Primary osteoarthritis, unspecified site; M41.9 Scoliosis, unspecified; Z88.2 Allergy status to sulfonamides
CPT/HCPCS: 36415; 71045; 76705; 80053; 80061; 83735; 83874; 84484; 85007; 85025; 85027; 85610; 85730; 87081; 93005; 93041; 94664

== ENCOUNTER → 2018-11-10 | Outpatient (CLI) | payer MEDICARE ==
[~2018-11-10] MED LIST changes: +HYDR-34 PO; +OMEP20TA33 PO; +PANT40TA3 PO
--- NOTE | 2018-11-10 22:44 | Diagnostic Imaging Report ---
EXAM: MRI left foot without contrast. DATE: November 10, 2018. INDICATION: 73-year-old female, left foot pain extending from the first toe to the dorsal aspect of the foot. COMPARISON: None available. TECHNIQUE: Multiple noncontrast MRI sequences of the left foot were obtained. FINDINGS: A marker was placed at the area of focal patient concern which is dorsally located and at the level of the medial cuneiform. The visualized portions of the peroneal tendons are intact. The visualized portions of the anterior extensor tendons are intact. The visualized portions of the posterior flexor tendons are intact. The Lisfranc ligament proper is intact. The visualized portions of the plantar fascia are intact. There is severe joint space loss with osteophyte formation and degenerative related marrow edema of the first metatarsophalangeal joint. There is uncovering of the lateral sesamoid. The additional joint spaces are well preserved. There is no joint effusion. There is no acute fracture, bone contusion or evidence of osteonecrosis. There is mild nonspecific dorsal subcutaneous edema. There is no well demarcated focal fluid collection. There is close apposition of the calcaneus and navicular which potentially could reflect a fibrocartilaginous coalition. This is incompletely imaged. IMPRESSION: 1. Intact visualized tendons. 2. Intact Lisfranc ligament proper. 3. 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 4. 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 This is incompletely imaged. 5. No acute fracture, bone contusion or evidence of osteonecrosis. Dictated by: Dictated on workstation # [id number]
== END ==
LOC: RAD 13:44
PROVIDERS: ATTEND Podiatrist
DX: M19.072 Primary osteoarthritis, left ankle and foot (principal)

== ENCOUNTER → 2019-01-16 | Outpatient (CLI) | payer MEDICARE ==
--- NOTE | 2019-01-16 12:24 | Diagnostic Imaging Report ---
INDICATION: Routine screening. Comparison is made with prior mammograms from 02/04/2016 and 11/20/2014. 2-D and 3-D bilateral screening mammography was performed. The current study was also evaluated with a Computer Aided Detection (CAD) system. 3-D tomosynthesis was also performed and reviewed. FINDINGS: Both breasts are heterogeneously dense, limiting the sensitivity of mammography. There is an area of increased density and questionable architectural distortion in the superior right breast, best seen on the MLO view. Additional views are recommended. The left breast is unremarkable. There are benign calcifications. No malignant-appearing microcalcifications are seen. Axillae are unremarkable. IMPRESSION: Increased density and questionable architectural distortion in the superior right breast. Additional views are recommended for further evaluation. ACR BI-RADS Category 0: Incomplete. (Needs additional imaging evaluation). Result letter will be mailed to the patient. Note: At least 10% of breast cancer is not imaged by mammography. Dictated by: Dictated on workstation # [id number]
== END ==
LOC: RAD 10:16
PROVIDERS: ATTEND Obstetrics & Gynecology
DX: Z12.31 Encounter for screening mammogram for malignant neoplasm of breast (principal); R92.8 Other abnormal and inconclusive findings on diagnostic imaging of breast
CPT/HCPCS: 77067

== ENCOUNTER → 2019-01-19 | Outpatient (CLI) | payer MEDICARE ==
--- NOTE | 2019-01-19 13:55 | Diagnostic Imaging Report ---
INDICATION: Right breast density. The study is done for further evaluation. Correlation is made with diagnostic mammogram earlier the same day and screening mammogram from 01/16/2019. Sonographic interrogation of the upper right breast was performed. There is a slightly irregular hypoechogenicity at the 12 o'clock location of the right breast, 6 cm from the nipple. This area measures 14 mm x 7 mm x 14 mm. Minimal internal vascularity is seen. No posterior acoustic shadowing is seen. No other abnormalities are detected. IMPRESSION: BI-RADS Category 4 Irregular hypoechoic mass 12 o'clock location of the right breast, 6 cm from the nipple, likely accounting for the area of increased density and architectural distortion on mammogram. This is concerning for small breast neoplasm. Tissue sampling is recommended. This would be amenable to ultrasound-guided core biopsy. Dictated by: Dictated on workstation # [id number]
--- NOTE | 2019-01-19 15:47 | Diagnostic Imaging Report ---
INDICATION: Right breast density. Patient presents for additional views. COMPARISON: Correlation is made with recent screening study from 01/16/2019. TECHNIQUE: Unilateral right 2-D and 3-D diagnostic mammography was performed including exaggerated CC, spot compression MLO, and conventional 90 degree lateral views. The current study was also evaluated with a Computer Aided Detection (CAD) system. 3-D tomosynthesis was also performed and reviewed. FINDINGS: This is a persistent area of irregular density and questionable architectural distortion in the superior right breast, approximately 7 cm from the nipple. This may be located in the outer aspect of the right breast. Further evaluation of this area with ultrasound is recommended. IMPRESSION: Persistent spiculation and architectural distortion in the superior right breast, 7 cm from the nipple, as described. Further evaluation with ultrasound is recommended and will be performed today. ACR BI-RADS Category 0: Incomplete. (Needs additional imaging evaluation). Result letter will be mailed to the patient. Note: At least 10% of breast cancer is not imaged by mammography. Dictated by: Dictated on workstation # [id number]
== END ==
LOC: RAD 12:34
PROVIDERS: ATTEND Obstetrics & Gynecology
DX: N63.10 Unspecified lump in the right breast, unspecified quadrant (principal); R92.8 Other abnormal and inconclusive findings on diagnostic imaging of breast

== ENCOUNTER → 2019-01-20 | Outpatient (CLI) | payer MEDICARE ==
[~2019-01-20] VITALS: Ht 157.5 cm; Wt 56.8 kg
[~2019-01-20] MED LIST changes: +LIDOCAINE 1% INJ 20 ML 20 ML VIAL INJ ONE; +LIDOCAINE 1% INJ 20 ML 20 ML VIAL ONE
--- NOTE | 2019-01-20 12:03 | Diagnostic Imaging Report ---
INDICATION: Right breast mass. Patient presents for ultrasound-guided biopsy. PROCEDURE: Patient was brought to the procedure room and placed on the table in supine position. Ultrasound imaging of the right breast was performed to evaluate appropriate entry site. The right breast was then prepped and draped in usual sterile fashion. Small amount of 1% lidocaine was utilized for local anesthesia. A total of four passes were made into the irregular hypoechoic mass 12 o'clock location of the right breast utilizing 14-gauge Achieve needle. Core biopsy was performed. A marker clip was then deployed. [place] were removed and hemostasis was obtained using manual compression. Patient tolerated the procedure well and was sent for post procedure mammogram in satisfactory condition. IMPRESSION: Successful ultrasound-guided core biopsy of the hypoechoic mass 12 o'clock location of the right breast, 6 cm from the nipple. Pathology results are currently pending. Dictated by: Dictated on workstation # [id number]
--- NOTE | 2019-01-20 12:33 | Diagnostic Imaging Report ---
INDICATION: Right breast biopsy. 2-D CC and MLO mammography was performed [id number] biopsy. A marker clip is lying adjacent to the area of architectural distortion in the superior right breast. IMPRESSION: Marker clip is located at the area of architectural distortion in the superior posterior right breast. Dictated by: Dictated on workstation # [id number]
== END ==
LOC: RAD 10:13
PROVIDERS: ATTEND Obstetrics & Gynecology
DX: N63.10 Unspecified lump in the right breast, unspecified quadrant (principal); R92.8 Other abnormal and inconclusive findings on diagnostic imaging of breast; Z98.890 Other specified postprocedural states
CPT/HCPCS: 19083; 88305; 88360

== ENCOUNTER → 2019-06-06 | Outpatient (CLI) | payer MEDICARE ==
[~2019-06-06] MED LIST changes: -LIDOCAINE 1% INJ 20 ML 20 ML VIAL INJ ONE; -LIDOCAINE 1% INJ 20 ML 20 ML VIAL ONE
--- NOTE | 2019-06-06 10:11 | Diagnostic Imaging Report ---
INDICATION: Screening for osteoporosis. COMPARISON: 04/10/2014. TECHNIQUE: The bone mineral density of the hips was measured. The bone mineral density of the spine could not be calculated due to prior lumbar surgery. FINDINGS: The DEXA scan of 04/10/2014 noted that the bone mineral density of the right forearm was within normal limits. The T score is -0.8. The total T score for the left hip is 0.1 and for the right hip 0.5. The total T score for each femoral neck is 0.1. All of these values are within normal limits. AP Spine L1-L4: [BMD (g/cm2): NA] [T-Score: NA] [Z-Score: NA] [BMD Previous: NA] [BMD % Change: NA] LT Hip Neck: [BMD (g/cm2): 1.049] [T-Score: 0.1] [Z-Score: 2.1] LT Hip Total: [BMD (g/cm2):1.021] [T-Score:0.1] [Z-Score: 1.9] [BMD Previous: 1.027] [BMD % Change: -0.6] RT Hip Neck: [BMD (g/cm2):1.048] [T-Score:0.1] [Z-Score:2.1] RT Hip Total: [BMD (g/cm2):1.072] [T-score:0.5] [Z-Score:2.3] [BMD Previous:1.065] [BMD % Change:0.7] *Indicates significant change from prior examination based on 95% confidence level. World Health Organization criteria for BMD interpretation classify patients as Normal (T-score at or above -1.0), Osteopenic (T-score between -1.0 and -2.5) or Osteoporotic (T-score at or below -2.5). LIMITATIONS AND MODIFICATION: None. FRACTURE RISK (FRAX SCORE): The ten year probability of (%): Major Osteoporotic Fracture: [NA] Hip Fracture: [NA] IMPRESSION: 1. The bone mineral density of the hips and femoral necks is within normal limits. 2. The bone mineral density of the spine could not be calculated due to prior lumbar surgery. 3. See below National Osteoporosis Foundation guidelines on when to potentially initiate pharmacologic therapy. Based on the National Osteoporosis Foundation Guidelines, pharmacologic treatment should be initiated in any of the following, unless clinical conditions suggest otherwise: * Any patient with prior fragility fracture of the hip or vertebrae. A spine fracture indicates 5X risk for subsequent spine fracture and 2X risk for subsequent hip fracture. * Osteoporosis (T-score <-2.5). * Postmenopausal women and men age 50 and older with low bone mass/osteopenia (T-score between -1.0 and -2.5) by DXA and 10-year major osteoporotic fracture greater than 20% or a 10-year probability of hip fracture greater than 3%. These fracture risks are supplied above in the FRAX score, if applicable. * Clinician judgement and/or patient preferences may indicate treatment for people with 10-year fracture probabilities above or below these levels. Dictated by: Dictated on workstation # [id number]
== END ==
LOC: RAD 08:27
PROVIDERS: ATTEND Internal Medicine Hematology & Oncology
DX: Z13.820 Encounter for screening for osteoporosis (principal); Z78.0 Asymptomatic menopausal state; C50.919 Malignant neoplasm of unspecified site of unspecified female breast
CPT/HCPCS: 77080

== ENCOUNTER 2019-06-07 10:48 | Outpatient (RCR) | payer MEDICARE ==
[2019-04-21 10:42] LABS: BASOPHILS % (AUTO) 1 % (0-10); EOSINOPHILS # (AUTO) 0.4 10^3/uL (0.0-0.3); EOSINOPHILS % (AUTO) 6 % (0-10); HEMATOCRIT 40 % (35-52); LYMPHOCYTES # (AUTO) 0.8 X 10^3 (1.0-4.0); LYMPHOCYTES % (AUTO) 14 % (12-44); MEAN CORPUSCULAR HEMOGLOBIN 30 PG (25-34); MEAN CORPUSCULAR HGB CONC 32 G/DL (32-36); MEAN CORPUSCULAR VOLUME 91 FL (80-99); MONOCYTES # (AUTO) 0.6 X 10^3 (0.0-1.0); MONOCYTES % (AUTO) 9 % (0-12); NEUTROPHILS # (AUTO) 4.3 X 10^3 (1.8-7.8); NEUTROPHILS % (AUTO) 71 % (42-75); PLATELET COUNT 215 10^3/uL (130-400); RED CELL DISTRIBUTION WIDTH 13.4 % (10.0-14.5); WHITE BLOOD COUNT 6.1 10^3/uL (4.3-11.0)
[2019-04-21 11:01] LABS: ALANINE AMINOTRANSFERASE 17 U/L (0-55); ALBUMIN 4.4 GM/DL (3.2-4.5); ALKALINE PHOSPHATASE 85 U/L (40-136); BILIRUBIN,TOTAL 0.6 MG/DL (0.1-1.0); BUN/CREATININE RATIO 20; CALCIUM 9.6 MG/DL (8.5-10.1); CARBON DIOXIDE 25 MMOL/L (21-32); CHLORIDE 106 MMOL/L (98-107); CREATININE SERUM 0.83 MG/DL (0.60-1.30); GFR ESTIMATED > 60; GLUCOSE 97 MG/DL (70-105); POTASSIUM 4.3 MMOL/L (3.6-5.0); SODIUM 140 MMOL/L (135-145); TOTAL PROTEIN 7.5 GM/DL (6.4-8.2)
[2019-06-07 11:03] LABS: BASOPHILS % (AUTO) 1 % (0-10); EOSINOPHILS # (AUTO) 0.3 10^3/uL (0.0-0.3); EOSINOPHILS % (AUTO) 7 % (0-10); HEMATOCRIT 39 % (35-52); HEMOGLOBIN 12.5 G/DL (11.5-16.0); LYMPHOCYTES # (AUTO) 0.9 X 10^3 (1.0-4.0); LYMPHOCYTES % (AUTO) 22 % (12-44); MEAN CORPUSCULAR HEMOGLOBIN 30 PG (25-34); MEAN CORPUSCULAR HGB CONC 32 G/DL (32-36); MEAN CORPUSCULAR VOLUME 94 FL (80-99); MEAN PLATELET VOLUME 10.2 FL (7.4-10.4); MONOCYTES # (AUTO) 0.4 X 10^3 (0.0-1.0); MONOCYTES % (AUTO) 10 % (0-12); NEUTROPHILS # (AUTO) 2.5 X 10^3 (1.8-7.8); NEUTROPHILS % (AUTO) 60 % (42-75); PLATELET COUNT 225 10^3/uL (130-400); RED CELL DISTRIBUTION WIDTH 13.4 % (10.0-14.5); WHITE BLOOD COUNT 4.2 10^3/uL (4.3-11.0)
[2019-06-07 11:24] LABS: ALBUMIN 4.1 GM/DL (3.2-4.5); BILIRUBIN,TOTAL 0.4 MG/DL (0.1-1.0); CALCIUM 9.2 MG/DL (8.5-10.1); CREATININE SERUM 1.01 MG/DL (0.60-1.30); TOTAL PROTEIN 7.3 GM/DL (6.4-8.2)
== END 2019-06-27 | disposition home or self-care (01) ==
LOC: ONC 10:48
PROVIDERS: ATTEND Internal Medicine Hematology & Oncology
DX: Z51.0 Encounter for antineoplastic radiation therapy (principal); C50.411 Malignant neoplasm of upper-outer quadrant of right female breast; K21.9 Gastro-esophageal reflux disease without esophagitis; M19.90 Unspecified osteoarthritis, unspecified site; E78.00 Pure hypercholesterolemia, unspecified; Z98.890 Other specified postprocedural states; Z90.49 Acquired absence of other specified parts of digestive tract; Z98.1 Arthrodesis status; Z90.722 Acquired absence of ovaries, bilateral; Z90.710 Acquired absence of both cervix and uterus; Z80.0 Family history of malignant neoplasm of digestive organs
CPT/HCPCS: 77290; 77295; 77300; 77307; 77334; 77336; 77417; 80053; 85025; 99204; 99213; 99214

== ENCOUNTER → 2019-09-07 | Outpatient (CLI) | payer MEDICARE ==
[2019-09-07 10:57] LABS: BASOPHILS % (AUTO) 1 % (0-10); EOSINOPHILS # (AUTO) 0.4 10^3/uL (0.0-0.3); EOSINOPHILS % (AUTO) 8 % (0-10); HEMATOCRIT 38 % (35-52); HEMOGLOBIN 12.2 G/DL (11.5-16.0); LYMPHOCYTES % (AUTO) 21 % (12-44); MEAN CORPUSCULAR HEMOGLOBIN 30 PG (25-34); MEAN CORPUSCULAR HGB CONC 32 G/DL (32-36); MEAN CORPUSCULAR VOLUME 94 FL (80-99); MEAN PLATELET VOLUME 9.9 FL (7.4-10.4); MONOCYTES # (AUTO) 0.4 X 10^3 (0.0-1.0); MONOCYTES % (AUTO) 8 % (0-12); NEUTROPHILS # (AUTO) 2.9 X 10^3 (1.8-7.8); NEUTROPHILS % (AUTO) 62 % (42-75); PLATELET COUNT 207 10^3/uL (130-400); RED CELL DISTRIBUTION WIDTH 13.2 % (10.0-14.5); WHITE BLOOD COUNT 4.6 10^3/uL (4.3-11.0)
[2019-09-07 11:20] LABS: ALANINE AMINOTRANSFERASE 19 U/L (0-55); ALBUMIN 4.1 GM/DL (3.2-4.5); ALKALINE PHOSPHATASE 93 U/L (40-136); BILIRUBIN,TOTAL 0.4 MG/DL (0.1-1.0); BUN/CREATININE RATIO 24; CALCIUM 9.2 MG/DL (8.5-10.1); CARBON DIOXIDE 27 MMOL/L (21-32); CHLORIDE 108 MMOL/L (98-107); CREATININE SERUM 0.89 MG/DL (0.60-1.30); GFR ESTIMATED > 60; GLUCOSE 92 MG/DL (70-105); POTASSIUM 4.5 MMOL/L (3.6-5.0); SODIUM 141 MMOL/L (135-145)
== END ==
LOC: EDSTATUS 06-28 10:49 → ONC 10:46
PROVIDERS: ATTEND Internal Medicine Hematology & Oncology
DX: C50.919 Malignant neoplasm of unspecified site of unspecified female breast (principal)
CPT/HCPCS: 80053; 85025; G0463; 99213

== ENCOUNTER → 2019-12-18 | Outpatient (CLI) | payer MEDICARE ==
[~2019-12-18] MED LIST changes: -PANT40TA3 PO; +PANT40TA52 PO
[2019-12-18 09:03] LABS: BASOPHILS % (AUTO) 0 % (0-10); EOSINOPHILS # (AUTO) 0.2 10^3/uL (0.0-0.3); EOSINOPHILS % (AUTO) 3 % (0-10); HEMATOCRIT 42 % (35-52); HEMOGLOBIN 13.5 g/dL (11.5-16.0); LYMPHOCYTES % (AUTO) 19 % (12-44); MEAN CORPUSCULAR HEMOGLOBIN 30 pg (25-34); MEAN CORPUSCULAR HGB CONC 32 g/dL (32-36); MEAN CORPUSCULAR VOLUME 94 fL (80-99); MEAN PLATELET VOLUME 9.8 fL (9.0-12.2); MONOCYTES # (AUTO) 0.4 10^3/uL (0.0-1.0); MONOCYTES % (AUTO) 8 % (0-12); NEUTROPHILS # (AUTO) 3.6 10^3/uL (1.8-7.8); NEUTROPHILS % (AUTO) 69 % (42-75); PLATELET COUNT 229 10^3/uL (130-400); WHITE BLOOD COUNT 5.1 10^3/uL (4.3-11.0)
[2019-12-18 09:30] LABS: ALBUMIN 4.2 GM/DL (3.2-4.5); BILIRUBIN,TOTAL 0.7 MG/DL (0.1-1.0); CALCIUM 9.3 MG/DL (8.5-10.1); CREATININE SERUM 0.95 MG/DL (0.60-1.30); POTASSIUM 3.8 MMOL/L (3.6-5.0); TOTAL PROTEIN 7.3 GM/DL (6.4-8.2)
== END ==
LOC: ONC 08:53
PROVIDERS: ATTEND Internal Medicine Hematology & Oncology
DX: C50.411 Malignant neoplasm of upper-outer quadrant of right female breast (principal); R23.2 Flushing; Z98.890 Other specified postprocedural states; Z17.0 Estrogen receptor positive status [ER+]; Z92.3 Personal history of irradiation; Z79.899 Other long term (current) drug therapy
CPT/HCPCS: 80053; 85025; G0463; 99213

== ENCOUNTER → 2020-03-28 | Outpatient (CLI) | payer MEDICARE ==
[2020-03-28 10:15] LABS: BASOPHILS % (AUTO) 0 % (0-10); EOSINOPHILS # (AUTO) 0.1 10^3/uL (0.0-0.3); EOSINOPHILS % (AUTO) 2 % (0-10); HEMATOCRIT 40 % (35-52); HEMOGLOBIN 12.7 g/dL (11.5-16.0); LYMPHOCYTES # (AUTO) 1.2 10^3/uL (1.0-4.0); LYMPHOCYTES % (AUTO) 20 % (12-44); MEAN CORPUSCULAR HEMOGLOBIN 31 pg (25-34); MEAN CORPUSCULAR HGB CONC 32 g/dL (32-36); MEAN CORPUSCULAR VOLUME 97 fL (80-99); MEAN PLATELET VOLUME 9.8 fL (9.0-12.2); MONOCYTES # (AUTO) 0.3 10^3/uL (0.0-1.0); MONOCYTES % (AUTO) 6 % (0-12); NEUTROPHILS # (AUTO) 4.2 10^3/uL (1.8-7.8); NEUTROPHILS % (AUTO) 72 % (42-75); PLATELET COUNT 239 10^3/uL (130-400); WHITE BLOOD COUNT 5.9 10^3/uL (4.3-11.0)
[2020-03-28 10:38] LABS: ALBUMIN 4.3 GM/DL (3.2-4.5); BILIRUBIN,TOTAL 0.4 MG/DL (0.1-1.0); CALCIUM 9.3 MG/DL (8.5-10.1); CREATININE SERUM 0.91 MG/DL (0.60-1.30); POTASSIUM 3.9 MMOL/L (3.6-5.0); TOTAL PROTEIN 7.6 GM/DL (6.4-8.2)
== END ==
LOC: ONC 10:08
PROVIDERS: ATTEND Internal Medicine Hematology & Oncology
DX: C50.911 Malignant neoplasm of unspecified site of right female breast (principal); Z79.811 Long term (current) use of aromatase inhibitors; Z92.3 Personal history of irradiation
CPT/HCPCS: 80053; 85025; G0463; 99213

== ENCOUNTER → 2020-06-24 | Outpatient (CLI) | payer MEDICARE ==
[~2020-06-24] VITALS: Ht 157 cm; Wt 57.0 kg
[~2020-06-24] MED LIST changes: +CATHETER FLUSH 10 ML SYR IV PRN; +REGADENOSON 0.4 MG/5 ML SYR (LEXISCAN) IV ONE
[2020-06-24 08:05] VITALS: BP 156/76
--- NOTE | 2020-06-24 19:54 | Cardiology Stress Test Report ---
Stress Test Report Date of Procedure/Referring: Date of Procedure: Jun 24, 2020 PCP Eligio Jean Baptiste DO Admitting Physician Eligio Jaen Baptiste DO Baseline Vital Signs Vital Signs Date Time Temp Pulse Resp B/P (MAP) Pulse Ox O2 Delivery O2 Flow Rate FiO2 06/24/20 08:05 156/76 (102) Summary: Patient receive a resting and stress dose of Myoview, images were acquired and reviewed in the short axis view, horizontal long axis view and vertical long axis view. TID: 0.96 SSS: 0 SDS: 0 EF: 81 1. No ischemia or infarction on SPECT images 2. Normal left ventricular size, EF 81% SANDRA BYRD MD Jun 24, 2020 19:54
== END ==
LOC: CARD 07:00
PROVIDERS: ATTEND Internal Medicine
DX: Z13.6 Encounter for screening for cardiovascular disorders (principal)
CPT/HCPCS: 78452; 93017; A9502

== ENCOUNTER → 2020-09-24 | Outpatient (CLI) | payer MEDICARE ==
[~2020-09-24] MED LIST changes: -CATHETER FLUSH 10 ML SYR IV PRN; -REGADENOSON 0.4 MG/5 ML SYR (LEXISCAN) IV ONE
[2020-09-24 10:04] LABS: BASOPHILS # (AUTO) 0.1 10^3/uL (0.0-0.1); BASOPHILS % (AUTO) 1 % (0-10); EOSINOPHILS # (AUTO) 0.4 10^3/uL (0.0-0.3); EOSINOPHILS % (AUTO) 7 % (0-10); HEMATOCRIT 39 % (35-52); HEMOGLOBIN 11.9 g/dL (11.5-16.0); LYMPHOCYTES % (AUTO) 16 % (12-44); MEAN CORPUSCULAR HEMOGLOBIN 30 pg (25-34); MEAN CORPUSCULAR HGB CONC 31 g/dL (32-36); MEAN CORPUSCULAR VOLUME 97 fL (80-99); MEAN PLATELET VOLUME 9.8 fL (9.0-12.2); MONOCYTES # (AUTO) 0.5 10^3/uL (0.0-1.0); MONOCYTES % (AUTO) 8 % (0-12); NEUTROPHILS # (AUTO) 4.3 10^3/uL (1.8-7.8); NEUTROPHILS % (AUTO) 68 % (42-75); PLATELET COUNT 211 10^3/uL (130-400); WHITE BLOOD COUNT 6.3 10^3/uL (4.3-11.0)
[2020-09-24 10:24] LABS: ALANINE AMINOTRANSFERASE 28 U/L (0-55); ALBUMIN 3.8 GM/DL (3.2-4.5); ALKALINE PHOSPHATASE 108 U/L (40-136); BILIRUBIN,TOTAL 0.6 MG/DL (0.1-1.0); BUN/CREATININE RATIO 26; CALCIUM 9.2 MG/DL (8.5-10.1); CARBON DIOXIDE 26 MMOL/L (21-32); CHLORIDE 106 MMOL/L (98-107); CREATININE SERUM 0.84 MG/DL (0.60-1.30); GFR ESTIMATED > 60; GLUCOSE 106 MG/DL (70-105); POTASSIUM 4.3 MMOL/L (3.6-5.0); SODIUM 140 MMOL/L (135-145); TOTAL PROTEIN 6.6 GM/DL (6.4-8.2)
== END ==
LOC: ONC 09:55
PROVIDERS: ATTEND Internal Medicine Hematology & Oncology
DX: C50.411 Malignant neoplasm of upper-outer quadrant of right female breast (principal); E78.5 Hyperlipidemia, unspecified; Z90.11 Acquired absence of right breast and nipple; Z92.3 Personal history of irradiation; Z79.811 Long term (current) use of aromatase inhibitors
CPT/HCPCS: 80053; 85025; G0463; 99213

== ENCOUNTER → 2021-01-07 | Outpatient (CLI) | payer MEDICARE ==
[2021-01-07 10:06] LABS: BASOPHILS % (AUTO) 1 % (0-10); EOSINOPHILS # (AUTO) 0.4 10^3/uL (0.0-0.3); EOSINOPHILS % (AUTO) 8 % (0-10); HEMATOCRIT 40 % (35-52); HEMOGLOBIN 12.8 g/dL (11.5-16.0); LYMPHOCYTES % (AUTO) 22 % (12-44); MEAN CORPUSCULAR HEMOGLOBIN 31 pg (25-34); MEAN CORPUSCULAR HGB CONC 32 g/dL (32-36); MEAN CORPUSCULAR VOLUME 96 fL (80-99); MEAN PLATELET VOLUME 9.8 fL (9.0-12.2); MONOCYTES # (AUTO) 0.4 10^3/uL (0.0-1.0); MONOCYTES % (AUTO) 8 % (0-12); NEUTROPHILS % (AUTO) 61 % (42-75); PLATELET COUNT 221 10^3/uL (130-400); WHITE BLOOD COUNT 4.8 10^3/uL (4.3-11.0)
[2021-01-07 10:24] LABS: ALBUMIN 4.1 GM/DL (3.2-4.5); BILIRUBIN,TOTAL 0.5 MG/DL (0.1-1.0); CALCIUM 9.7 MG/DL (8.5-10.1); CREATININE SERUM 0.89 MG/DL (0.60-1.30); TOTAL PROTEIN 7.4 GM/DL (6.4-8.2)
== END ==
LOC: ONC 09:57
PROVIDERS: ATTEND Internal Medicine Hematology & Oncology
DX: C50.411 Malignant neoplasm of upper-outer quadrant of right female breast (principal); K21.9 Gastro-esophageal reflux disease without esophagitis; E78.5 Hyperlipidemia, unspecified; Z90.11 Acquired absence of right breast and nipple; Z98.890 Other specified postprocedural states; Z79.811 Long term (current) use of aromatase inhibitors; Z92.3 Personal history of irradiation
CPT/HCPCS: 80053; 85025; G0463; 99213

== ENCOUNTER → 2022-07-21 | Outpatient (CLI) | payer MEDICARE ==
--- NOTE | 2022-07-21 17:14 | Diagnostic Imaging Report ---
INDICATION: Postmenopausal screening COMPARISON: 06/06/2019 FINDINGS: AP Spine L1-L4: [BMD (g/cm2): na] [T-Score: na] [Z-Score: na] [BMD Previous: na] [BMD % Change: na] LT Hip Neck: [BMD (g/cm2): 1.027] [T-Score: -0.1] [Z-Score: 2.1] LT Hip Total: [BMD (g/cm2):0.982] [T-Score:-0.2] [Z-Score: 1.8] [BMD Previous: 1.021] [BMD % Change: -3.8*] RT Hip Neck: [BMD (g/cm2):0.984] [T-Score:-0.4] [Z-Score:1.8] RT Hip Total: [BMD (g/cm2):1.027] [T-score:0.2] [Z-Score:2.2] [BMD Previous:1.072] [BMD % Change:-4.2*] *Indicates significant change from prior examination based on 95% confidence level. World Health Organization criteria for BMD interpretation classify patients as Normal (T-score at or above -1.0), Osteopenic (T-score between -1.0 and -2.5) or Osteoporotic (T-score at or below -2.5). LIMITATIONS AND MODIFICATION: None. FRACTURE RISK (FRAX SCORE): The ten year probability of (%): Major Osteoporotic Fracture: [na] Hip Fracture: [na] IMPRESSION: 1. Normal bone mineral density. 2. Bone mineral density has decreased by a statistically significant amount, as detailed above. 3. See below National Osteoporosis Foundation guidelines on when to potentially initiate pharmacologic therapy. Based on the National Osteoporosis Foundation Guidelines, pharmacologic treatment should be initiated in any of the following, unless clinical conditions suggest otherwise: * Any patient with prior fragility fracture of the hip or vertebrae. A spine fracture indicates 5X risk for subsequent spine fracture and 2X risk for subsequent hip fracture. * Osteoporosis (T-score <-2.5). * Postmenopausal women and men age 50 and older with low bone mass/osteopenia (T-score between -1.0 and -2.5) by DXA and 10-year major osteoporotic fracture greater than 20% or a 10-year probability of hip fracture greater than 3%. These fracture risks are supplied above in the FRAX score, if applicable. * Clinician judgement and/or patient preferences may indicate treatment for people with 10-year fracture probabilities above or below these levels. Dictated by: Dictated on workstation # [id number]
== END ==
LOC: RAD 12:26
PROVIDERS: ATTEND Nurse Practitioner
DX: Z13.820 Encounter for screening for osteoporosis (principal); C50.911 Malignant neoplasm of unspecified site of right female breast; Z79.811 Long term (current) use of aromatase inhibitors
CPT/HCPCS: 77080